=== PATIENT | male | born 1965 | race Hispanic/Latino ===

== ENCOUNTER 2016-11-22 20:04 | Inpatient (IN) | payer OTHER ==
[2016-11-22 20:05] VITALS: BMI 25.0
--- NOTE | 2016-11-22 20:23 | C.PDOC ---
History Of Present Illness 51 y/o male with past medical history of lung cancer presents to emergency department with c/o chest pain. Patient states he took his normal dose of morphine w/o relief, noting his typical pain medications are not helping him. Otherwise, denies fever, chills, nausea, vomiting, shortness of breath, or other associated symptoms. Time Seen by Provider: 11/22/16 20:23 Chief Complaint (Nursing): Chest Pain History Per: Patient History/Exam Limitations: no limitations Onset/Duration Of Symptoms: Days Current Symptoms Are (Timing): Still Present Severity: Moderate Pain Scale Rating Of: 5 Quality: "Pain" Associated Symptoms: denies: Nausea, Diaphoresis Recent travel outside of the [place]: No Past Medical History Reviewed: Historical Data, Nursing Documentation, Vital Signs Vital Signs: Last Vital Signs Temp 98.1 F 11/22/16 20:20 Pulse 94 H 11/22/16 20:34 Resp 16 11/22/16 20:20 BP 123/94 H 11/22/16 20:34 Pulse Ox 97 11/22/16 20:59 - Medical History PMH: Asthma, HTN, Malignancy (lung ca) - [employer] Procedures DRAINAGE OF RIGHT LOWER LOBE BRONCHUS, ENDO, DIAGN (09/13/16) EXCISION OF LEFT UPPER LOBE BRONCHUS, PERC APPROACH, DIAGN (07/05/16) EXCISION OF LEFT UPPER LUNG LOBE, ENDO, DIAGN (07/05/16) INSERTION OF ENDOTRACHEAL AIRWAY INTO TRACHEA, VIA OPENING (09/13/16) INSERTION OF INFUSION DEV INTO SUP VENA CAVA, PERC APPROACH (09/13/16) REMOVAL OF VAD FROM TRUNK SUBCU/FASCIA, OPEN APPROACH (09/13/16) RESPIRATORY VENTILATION, GREATER THAN 96 CONSECUTIVE HOURS (09/13/16) TRANSFUSE NONAUT PLATELETS IN PERIPH VEIN, PERC (09/13/16) TRANSFUSE NONAUT RED BLOOD CELLS IN PERIPH VEIN, PERC (09/13/16) ULTRASONOGRAPHY OF RIGHT AND LEFT HEART, TRANSESOPHAGEAL (09/13/16) Family History: States: Unknown Family Hx - Social History Hx Tobacco Use: Yes Hx Alcohol Use: No Hx Substance Use: No - Immunization History Hx Tetanus Toxoid Vaccination: No Hx Influenza Vaccination: No Hx Pneumococcal Vaccination: No Review Of Systems Constitutional: Negative for: Fever, Chills Cardiovascular: Positive for: Chest Pain Respiratory: Negative for: Cough, Shortness of Breath Skin: Negative for: Rash Physical Exam - Physical Exam Appears: Non-toxic, Other (moderate painful distress, 5/10) Skin: Warm, Dry Head: Atraumatic, Normacephalic Eye(s): right: Normal Inspection, left: Other (mild edema of left upper eyelid) Oral Mucosa: Moist Chest: Symmetrical Cardiovascular: Rhythm Regular Respiratory: Decreased Breath Sounds, No Accessory Muscle Use, Rhonchi ( scattered), No Wheezing Gastrointestinal/Abdominal: Soft, Distention (mildly distended), Other ( tympanic to percussion) Back: Normal Inspection Extremity: Normal ROM, Capillary Refill (< 2 sec. ), Other (PIC line left arm ) Neurological/Psych: Oriented x3 ED Course And Treatment - Laboratory Results Result Diagrams: 11/22/16 20:42 11/22/16 20:42 ECG: Interpreted By Me, Viewed By Me ECG Rhythm: Sinus Rhythm (98), Nonspecific Changes (occ, pac's) O2 Sat by Pulse Oximetry: 97 Pulse Ox Interpretation: Normal - Radiology CXR: Interpreted by Me, Viewed By Me CXR Interpretation: No: Infiltrates, Fracture, Pnemothorax, Other (cesar changes, unchanged from 10/03/16) Progress Note: EKG, VBG, labs, cxr ordered. Aspirin 325mg and dilaudid given. Disposition Discussed With Dr.: Aston Almonte Comment: accepted the pt on his service and took over the care at 10:22 PM Doctor Will See Patient In The: ED Counseled Patient/Family Regarding: Studies Performed, Diagnosis - Disposition Referrals: Jonas Watson MD [Primary Care Provider] - Disposition: HOSPITALIZED Disposition Time: 20:23 Condition: FAIR - Clinical Impression Clinical Impression: Intractable pain, Dyspnea, Chest pain, Lung cancer - Scribe Statement The provider has reviewed the documentation as recorded by the Ellisibe Gurpreet Yancey All medical record entries made by the Ellisibe were at my direction and personally dictated by me. I have reviewed the chart and agree that the record accurately reflects my personal performance of the history, physical exam, medical decision making, and the department course for this patient. I have also personally directed, reviewed, and agree with the discharge instructions and disposition. Decision To Admit - Pt Status Changed To: Hospital Disposition Of: Observation - . Bed Request Type: Telemetry Admitting Physician: Aston Almonte Patient Diagnosis: Dyspnea, Chest pain, Lung mass, Intractable pain
[2016-11-22] MEDS ORDERED: Aspirin 325 mg EC Tablets PO STA (20:24)
[2016-11-22] MEDS ORDERED: Aspirin 325 mg EC Tablets PO ONE (20:31)
[2016-11-22 20:46] LABS: BASO % 0.6 % (0.0-2.0); EOS % 0.6 % (0.0-4.0); HEMATOCRIT 26.9 % (35.0-51.0); LYMPH # 1.7 K/uL (1.0-4.3); LYMPH % 28.9 % (20.0-40.0); MEAN CELL VOLUME 92.7 fL (80.0-94.0); MEAN CORPUSCULAR HEMOGLOBIN 30.6 pg (27.0-31.0); MEAN CORPUSCULAR HGB CONC 32.9 g/dL (33.0-37.0); MEAN PLATELET VOLUME 7.8 fL (7.2-11.7); MONO # 0.7 K/uL (0.0-0.8); MONO % 12.1 % (0.0-10.0); NRBC % 0.1 % (0.0-2.0); RED CELL DISTRIBUTION WIDTH 20.2 % (11.5-14.5); WHITE BLOOD COUNT 5.9 K/uL (4.8-10.8)
[2016-11-22 20:53] LABS: CHLORIDE 95 mmol/L (98-107); POTASSIUM 3.2 mmol/L (3.6-5.2); SODIUM 136 mmol/L (132-148)
[2016-11-22 20:55] LABS: GFR AFRICAN-AMERICAN > 60; INR 1.2
[2016-11-22 20:56] LABS: ALKALINE PHOSPHATASE 79 U/L (38-126); ALT/SGPT 13 U/L (21-72); AST/SGOT 11 U/L (17-59); BILIRUBIN,TOTAL 0.4 mg/dL (0.2-1.3); BLOOD UREA NITROGEN 4 mg/dL (9-20); CARBON DIOXIDE 25 mmol/L (22-30); GLUCOSE,RANDOM 102 mg/dL (75-110); TOTAL PROTEIN 7.5 g/dL (6.3-8.3)
[2016-11-22 20:57] LABS: CALCIUM 9.4 mg/dl (8.6-10.4)
[2016-11-22 21:03] LABS: VENOUS BLOOD GAS BASE EXCESS 3.2 mmol/L (0.0-2.0); VENOUS BLOOD GAS PCO2 42 mmHg (40-60); VENOUS BLOOD PH 7.43 (7.32-7.43)
--- NOTE | 2016-11-22 23:08 | CP.PCM.HP ---
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 Pt reports he has chest pain "everyday" because of his lung cancer which occurs diffusely over his chest wall, and he normally rates as 5-7/10. Today, the pain was " worse than normal" and he had no appetite so he decided to come to the ED. He describes the chest pain as a "stabbing, sharp" left sided pain, rates it as a 10/10 on the pain scale, which does not radiate. Pt reports the pain is made worse with inspiration, eating, and palpation of the chest wall. He states his current pain regimen normally reduces his pain "to a manageable level," but it did not help today. He also admits to having multiple episodes of non-bloody diarrhea over the past three days. He has recent history of antibiotic use, but he does not know the name or the reason for its use. He further reports reduced facial sensation, and has history of stroke. He denies sequelae from CVA on previous admission. Patient is on home oxygen of 2 liters. He denies fever, chills, dysuria, diaphoresis, or cough. PMD: Dr. Watson Oncologist: Dr. 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 Used to smoke 3-4 PPD, now smokes 1/2 PPD. Denies alcohol or illicit drug use. 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 absent: Dyspnea, Dyspnea on Exertion - Respiratory Respiratory: absent: Cough, Dyspnea - Gastrointestinal Gastrointestinal: Diarrhea (3 days of persistent diarrhea, multiple episodes), Nausea. absent: Abdominal Pain, Vomiting - Genitourinary Genitourinary: absent: Dysuria - Musculoskeletal Musculoskeletal: absent: Back Pain, Numbness, Tingling - Neurological Neurological: absent: Numbness, Headaches, Tingling, Weakness - Psychiatric Psychiatric: absent: Anxiety, Depression Past Patient History - Infectious Disease Hx of Infectious Diseases: None - Past Medical History & Family History Past Medical History?: Yes - Past Social History Smoking Status: Heavy Smoker > 10 Cigarettes Daily - CARDIAC Hx Hypertension: Yes - PULMONARY Hx Asthma: Yes - NEUROLOGICAL Hx Neurological Disorder: Yes HX Cerebrovascular Accident: Yes Other/Comment: left eye blindness post cva - HEENT Hx HEENT Problems: Yes Hx Blind: Yes (left eye blind) - RENAL Hx Chronic Kidney Disease: No - ENDOCRINE/METABOLIC Hx Endocrine Disorders: No - HEMATOLOGICAL/ONCOLOGICAL Hx Blood Disorders: Yes Hx Cancer: Yes (LUNG CANCER) - INTEGUMENTARY Hx Dermatological Problems: No - MUSCULOSKELETAL/RHEUMATOLOGICAL Hx Musculoskeletal Disorders: Yes Hx Falls: Yes Other/Comment: HX: BILATERAL HERNIA(S). HX: LEFT ROTATOR CUFF TEAR - GASTROINTESTINAL Hx Gastrointestinal Disorders: No - GENITOURINARY/GYNECOLOGICAL Hx Genitourinary Disorders: No - PSYCHIATRIC Hx Substance Use: No - SURGICAL HISTORY Hx Surgeries: Yes Hx Herniorrhaphy: Yes (BILATERAL HERNIA REPAIR) Hx Musculoskeletal Surgery: Yes (LEFT ROTATOR CUFF) Other/Comment: yari catheter removed - ANESTHESIA Hx Anesthesia: Yes Hx Anesthesia Reactions: No Hx Malignant Hyperthermia: No Meds Allergies/Adverse Reactions: Allergies Allergy/AdvReac Type Severity Reaction Status Date / Time Penicillins Allergy SWELLING Verified 11/22/16 20:16 strawberry Allergy SWELLING Verified 11/22/16 20:16 all seafoods Allergy SWELLING Uncoded 11/22/16 20:16 iodinated IV dye Allergy SWELLING Uncoded 11/22/16 20:16 Physical Exam - Head Exam Head Exam: ATRAUMATIC, NORMAL INSPECTION, NORMOCEPHALIC Additional comments: no facial droop noted - Eye Exam Eye Exam: EOMI Pupil Exam: PERRL - ENT Exam ENT Exam: Mucous Membranes Moist - Neck Exam Neck exam: Positive for: Normal Inspection - Respiratory Exam Respiratory Exam: Chest Wall Tenderness, Clear to Auscultation Bilateral, NORMAL BREATHING PATTERN - Cardiovascular Exam Cardiovascular Exam: REGULAR RHYTHM, +S1, +S2 - GI/Abdominal Exam GI & Abdominal Exam: Normal Bowel Sounds, Soft. absent: Tenderness - Extremities Exam Extremities exam: Positive for: normal inspection, pedal pulses present. Negative for: tenderness - Back Exam Back exam: absent: CVA tenderness (L), CVA tenderness (R) - Neurological Exam Neurological exam: Alert, Oriented x3 Additional comments: Pt reports decreased facial sensation on left side on CN exam pt shows no evidence of facial droop MS: 5/5 in all extremities No dysmetria; light touch intact globally - Psychiatric Exam Psychiatric exam: Normal Affect, Normal Mood - Skin Skin Exam: Normal Color, Warm Results - Vital Signs Recent Vital Signs: Last Vital Signs Temp 98.1 F 11/22/16 20:20 Pulse 94 H 11/22/16 20:34 Resp 16 11/22/16 20:20 BP 123/94 H 11/22/16 20:34 Pulse Ox 97 11/22/16 22:22 - Labs Result Diagrams: 11/22/16 20:42 11/22/16 20:42 Assessment & Plan - Assessment and Plan (Free Text) Assessment: Chest pain Stabbing, anterior chest wall pain with palpation, worse with inspiration Observe on telemetry EKG: SR w/ premature atrial complexes, no acute ST/T wave changes ; f/u Q6H LAURIE: negative x 1; f/u Q6H BNP: 91.4 (WNL) ASA 325mg PO ONCE ASA 81 mg PO Daily Crestor 10mg PO HS O2 2L PRN f/u hemoglobin a1c, tsh, free t4, lipid panel, AM labs Hx of Lung CA 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 Minor, help appreciated - f/u reccs Intractable Pain HOLD home regimen: Morphine 60mg PO BID, Hydromorphone 4mg PO Q3H PRN Start Dilaudid 2mg IV Q4H PRN Consider pain consult in AM Facial numbness Hx of CVA, Lung Cancer No weakness in any extremity, no facial droop, pt admits altered sensation on CN exam CT Head: no acute findings (wet read per VRads, f/u official reading) Diarrhea Pt reports being on antibiotic, multiple episodes of diarrhea over last 3 days f/u C. Diff, stool culture, occult blood, leukocytes, ova and parasites Electrolyte Abnormalities hypokalemia: 3.2 on admission - repleted with Kdur 40mg x 2 Monitor Prophylaxis SCDs Protonix 40mg IV Daily Lovenox 40mg PO Daily <Aston Almonte - Last Filed: 11/23/16 06:12> Results - Vital Signs Recent Vital Signs: Last Vital Signs Temp 98.1 F 11/22/16 20:20 Pulse 84 11/23/16 03:10 Resp 18 11/23/16 03:00 BP 106/74 11/23/16 03:00 Pulse Ox 95 11/23/16 03:00 - Labs Result Diagrams: 11/23/16 05:55 11/22/16 20:42 Labs: Laboratory Results - last 24 hr 11/23/16 11/23/16 05:04 05:55 WBC 4.4 L RBC 2.66 L Hgb 8.2 L Hct 24.8 L MCV 93.1 MCH 30.6 MCHC 32.9 L RDW 20.4 H Plt Count 148 MPV 8.0 Neut % (Auto) 55.9 Lymph % (Auto) 28.3 Wheeler % (Auto) 13.3 H Eos % (Auto) 2.1 Baso % (Auto) 0.4 Neut # 2.5 Lymph # 1.3 Wheeler # 0.6 Eos # 0.1 Baso # 0.0 Urine Color Yellow Urine Clarity Hazy Urine pH 6.0 Ur Specific Mccool 1.024 Urine Protein 2+ H Urine Glucose (UA) Normal Urine Ketones Negative Urine Blood Negative Urine Nitrate Negative Urine Bilirubin Negative Urine Urobilinogen Normal Ur Leukocyte Esterase Neg Urine WBC (Auto) 3 Urine RBC (Auto) 3 Ur Squamous Epith Cells < 1 Hyaline Casts 0-2 Assessment & Plan - Date & Time Date: 11/23/16 (I have seen and examined the patient. I agree with the findings and plan of care as documented by Dr. Villafana. Patient with history of lung CA. Now with intractable pain from lung CA and also new complaint of chest pain. ROMIx3 with EKG. Symptomatic treatment. Consider pain management. Consult to Dr Minor. Monitor for acute changes.) Time: 06:11 Attending/Attestation - Attestation I have personally seen and examined this patient.: Yes I have fully participated in the care of the patient.: Yes I have reviewed all pertinent clinical information: Yes
[2016-11-23] MEDS: Potassium Chloride 20 mEq ER Tab PO SCH ×2 (01:41→04:57)
[2016-11-23 04:12] LABS: RBC URINE 3 /hpf (0-3); URINE BILIRUBIN NEGATIVE (NEGATIVE); URINE BLOOD NEGATIVE (NEGATIVE); URINE COLOR Yellow (YELLOW); URINE GLUCOSE (UA) NORMAL (Normal); URINE HYALINE CAST 0-2 /lpf (0-2); URINE KETONE NEGATIVE (NEGATIVE); URINE LEUKOCYTE ESTERASE NEG Leu/uL (Negative); URINE PROTEIN 2+ mg/dL (NEGATIVE); URINE UROBILINOGEN NORMAL mg/dL (0.2-1.0); WBC URINE 3 /hpf (0-5)
[2016-11-23 06:03] LABS: BASO % 0.4 % (0.0-2.0); EOS # 0.1 K/uL (0.0-0.7); EOS % 2.1 % (0.0-4.0); HEMATOCRIT 24.8 % (35.0-51.0); LYMPH # 1.3 K/uL (1.0-4.3); LYMPH % 28.3 % (20.0-40.0); MEAN CELL VOLUME 93.1 fL (80.0-94.0); MEAN CORPUSCULAR HEMOGLOBIN 30.6 pg (27.0-31.0); MEAN CORPUSCULAR HGB CONC 32.9 g/dL (33.0-37.0); MONO # 0.6 K/uL (0.0-0.8); MONO % 13.3 % (0.0-10.0); RED CELL DISTRIBUTION WIDTH 20.4 % (11.5-14.5); WHITE BLOOD COUNT 4.4 K/uL (4.8-10.8)
[2016-11-23 06:21] LABS: CHLORIDE 99 mmol/L (98-107); POTASSIUM 3.2 mmol/L (3.6-5.2); SODIUM 138 mmol/L (132-148)
[2016-11-23 06:23] LABS: ALB/GLOB RATIO 0.9 (1.0-2.1); ALKALINE PHOSPHATASE 60 U/L (38-126); ALT/SGPT 16 U/L (21-72); AST/SGOT 13 U/L (17-59); BILIRUBIN,TOTAL 0.3 mg/dL (0.2-1.3); BLOOD UREA NITROGEN 5 mg/dL (9-20); CARBON DIOXIDE 28 mmol/L (22-30); GFR AFRICAN-AMERICAN > 60; TOTAL PROTEIN 6.7 g/dL (6.3-8.3)
[2016-11-23 06:24] LABS: CALCIUM 8.8 mg/dl (8.6-10.4); GLUCOSE,RANDOM 116 mg/dL (75-110); MAGNESIUM 1.8 mg/dL (1.6-2.3); PHOSPHOROUS 5.5 mg/dL (2.5-4.5)
[2016-11-23 06:38] LABS: CHOLESTEROL 175 mg/dL (0-199)
--- NOTE | 2016-11-23 08:00 | CP.PCM.PN ---
<Jimmy Sarkar - Last Filed: 11/23/16 21:18> Subjective - Date & Time of Evaluation Date of Evaluation: 11/23/16 Time of Evaluation: 07:40 - Subjective Subjective: PGY1 Medicine Note Patient seen and examined. No overnight events per nursing. Patient reports previously being treated for his SCC of the lung, however he did not fully complete chemotherapy due to development of chest pain. Tolerating diet. + diarrhea. Reports pain to palpation of his left chest wall. He also admits to having multiple episodes of non-bloody diarrhea over the past three days due to antibiotic therapy for infective endocarditis. Denies fever, chills, dysuria, diaphoresis, or cough. Objective - Vital Signs/Intake and Output Vital Signs (last 24 hours): Temp Pulse Resp BP Pulse Ox 98.1 F 84 22 106/74 95 11/22/16 20:20 11/23/16 03:10 11/23/16 03:10 11/23/16 03:00 11/23/16 03:10 Intake and Output: 11/23/16 11/23/16 06:59 18:59 Intake Total 480 Output Total 0 Balance 480 - Medications Medications: Current Medications Albuterol (Ventolin Hfa 90 Mcg/Actuation (8 G)) 2 puff IH RQ6 [facility] Aspirin (Ecotrin) 81 mg PO DAILY [facility] Enoxaparin Sodium (Lovenox) 40 mg SC DAILY [facility] Hydromorphone HCl (Dilaudid) 2 mg IVP Q4H PRN PRN Reason: Pain, severe (8-10) Last Admin: 11/23/16 04:58 Dose: 2 mg Pantoprazole Sodium (Protonix Inj) 40 mg IVP DAILY [facility] Quetiapine Fumarate (Seroquel) 25 mg PO Q8H [facility] Last Admin: 11/23/16 01:40 Dose: 25 mg Rosuvastatin Calcium (Crestor) 10 mg PO HS [facility] - Labs Labs: 11/23/16 05:55 11/23/16 05:55 PT 14.0 SECONDS (9.7-12.2) H 11/22/16 20:42 INR 1.2 11/22/16 20:42 APTT 41 SECONDS (21-34) H 11/22/16 20:42 - Additional Findings Additional findings: - Head Exam Head Exam: ATRAUMATIC, NORMAL INSPECTION, NORMOCEPHALIC Additional comments: no facial droop noted - Eye Exam Eye Exam: EOMI Pupil Exam: PERRL - ENT Exam ENT Exam: Mucous Membranes Moist - Neck Exam Neck exam: Positive for: Normal Inspection - Respiratory Exam Respiratory Exam: Chest Wall Tenderness, Clear to Auscultation Bilateral, NORMAL BREATHING PATTERN - Cardiovascular Exam Cardiovascular Exam: REGULAR RHYTHM, +S1, +S2 Tenderness to palpation of Left chest wall. - GI/Abdominal Exam GI & Abdominal Exam: Normal Bowel Sounds, Soft. absent: Tenderness - Extremities Exam Extremities exam: Positive for: normal inspection, pedal pulses present. Negative for: tenderness - Back Exam Back exam: absent: CVA tenderness (L), CVA tenderness (R) - Neurological Exam Neurological exam: Alert, Oriented x3 Additional comments: Pt reports decreased facial sensation on left side on CN exam pt shows no evidence of facial droop MS: 5/5 in all extremities No dysmetria; light touch intact globally - Psychiatric Exam Psychiatric exam: Normal Affect, Normal Mood - Skin Skin Exam: Normal Color, Warm Assessment and Plan - Assessment and Plan (Free Text) Assessment: Chest pain 11/23: pain to palpation of Left chest wall. Consult Cardio, Dr. Buenrostro -> Audra stress test 11/24 in AM. Stabbing, anterior chest wall pain with palpation, worse with inspiration Observe on telemetry EKG: SR w/ premature atrial complexes, no acute ST/T wave changes LAURIE: negative x 3 BNP: 91.4 (WNL) ASA 325mg PO ONCE ASA 81 mg PO Daily Crestor 10mg PO HS O2 2L PRN f/u hemoglobin a1c tsh, free t4 - WNL Triglyc 150 H ; Cholest 175; LDL 136; HDL 21 Hx of Infective Endocarditis 11/23: Consult ID, Dr. Keenan, f/u recs. 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 Minor, jade hall - f/u reccs Intractable Pain HOLD home regimen: Morphine 60mg PO BID, Hydromorphone 4mg PO Q3H PRN Start Dilaudid 2mg IV Q4H PRN Consider pain consult in AM Anemia Hgb 8.2 Continue to monitor. type and screen. Facial numbness Hx of CVA, Lung Cancer No weakness in any extremity, no facial droop, pt admits altered sensation on CN exam CT Head: no acute findings (wet read per VRads, f/u official reading) Diarrhea Pt reports being on antibiotic, multiple episodes of diarrhea over last 3 days f/u C. Diff, stool culture, occult blood, leukocytes, ova and parasites Electrolyte Abnormalities hypokalemia: 3.2 on admission - repleted with Kdur 40mg x 2 Monitor Prophylaxis SCDs Protonix 40mg IV Daily Lovenox 40mg PO Daily <Danny Caraballo - Last Filed: 11/24/16 09:24> Objective - Vital Signs/Intake and Output Vital Signs (last 24 hours): Temp Pulse Resp BP Pulse Ox 98 F 85 19 133/73 98 11/24/16 04:00 11/24/16 04:00 11/24/16 00:00 11/23/16 23:53 11/24/16 00:00 Intake and Output: 11/24/16 11/24/16 06:59 18:59 Intake Total 240 Output Total 1500 Balance -1260 - Medications Medications: Current Medications Albuterol (Ventolin Hfa 90 Mcg/Actuation (8 G)) 2 puff IH RQ6 [facility] Last Admin: 11/24/16 07:54 Dose: Not Given Aspirin (Ecotrin) 81 mg PO DAILY [facility] Last Admin: 11/23/16 10:04 Dose: 81 mg Enoxaparin Sodium (Lovenox) 40 mg SC DAILY [facility] Last Admin: 11/23/16 10:04 Dose: 40 mg Hydromorphone HCl (Dilaudid) 2 mg IVP Q4H PRN PRN Reason: Pain, severe (8-10) Last Admin: 11/24/16 04:41 Dose: 2 mg Telavancin 750 mg/ Sodium (Chloride) 100 mls @ 100 mls/hr IVPB Q24H [facility] Pantoprazole Sodium (Protonix Inj) 40 mg IVP DAILY [facility] Last Admin: 11/23/16 10:03 Dose: 40 mg Quetiapine Fumarate (Seroquel) 25 mg PO Q8H [facility] Last Admin: 11/24/16 00:45 Dose: Not Given Rosuvastatin Calcium (Crestor) 10 mg PO HS [facility] Last Admin: 11/23/16 21:52 Dose: 10 mg - Labs Labs: 11/24/16 06:37 11/24/16 06:29 PT 14.0 SECONDS (9.7-12.2) H 11/22/16 20:42 INR 1.2 11/22/16 20:42 APTT 41 SECONDS (21-34) H 11/22/16 20:42 Attending/Attestation - Attestation I have personally seen and examined this patient.: Yes I have fully participated in the care of the patient.: Yes I have reviewed all pertinent clinical information, including history, physical exam and plan: Yes Notes (Text): 11/24/16 09:23 Patient was seen and examined at bedside with the resident Patient to states the chest pain is improved to slightly We will request cardiology and infectious disease evaluation for the patient and patient is started on IV antibiotics for infective endocarditis treatment Discussed the plan of care with the resident and agree with the assessment and plan by the resident
[2016-11-23] MEDS: Albuterol HFA 90 mcg/actuation (8 g) IH SCH ×3 (08:26→22:28)
--- NOTE | 2016-11-23 08:27 | CT ---
PROCEDURE: CT HEAD WITHOUT CONTRAST. HISTORY: facial numbness on left; hx CA, prior CVA COMPARISON: 09/13/2016 TECHNIQUE: Axial computed tomography images were obtained through the head/brain without intravenous contrast. Radiation dose: . FINDINGS: HEMORRHAGE: No intracranial hemorrhage. BRAIN: No mass effect or edema. No atrophy or chronic microvascular ischemic changes. VENTRICLES: Unremarkable. No hydrocephalus. CALVARIUM: Unremarkable. PARANASAL SINUSES: Unremarkable as visualized. No significant inflammatory changes. MASTOID AIR CELLS: Unremarkable as visualized. No inflammatory changes. OTHER FINDINGS: Mild hyperdensity in the left posterior chamber corresponding to high signal in the posterior chamber seen on axial T1 weighted images of MRI dated 10/12/2016. Possible blood products. Please correlate with ophthalmologic examination. IMPRESSION: No intracranial mass, hemorrhage or evidence of acute infarct. Hyperdensity in left globe posterior chamber. Please correlate with ophthalmologic examination. Preliminary interpretation of this examination was reported by [facility] at 12:28 a.m. on 11/23/2016. There is concurrence of this report with the preliminary interpretation.
--- NOTE | 2016-11-23 09:21 | RAD ---
PROCEDURE: CHEST RADIOGRAPH, 1 VIEW HISTORY: chest pain COMPARISON: 10/03/2016 FINDINGS: LUNGS: Biapical pleural thickening with upper lobe granulomatous changes. Bilateral hilar prominence. Patchy consolidative changes at the right lung base. Bibasilar atelectasis. Lines and tubes stable position. PLEURA: Small right pleural effusion. CARDIOVASCULAR: Normal. OSSEOUS STRUCTURES: No significant abnormalities. VISUALIZED UPPER ABDOMEN: Normal. OTHER FINDINGS: None. IMPRESSION: Biapical pleural thickening with upper lobe granulomatous changes. Bilateral hilar prominence. Patchy consolidative changes at the right lung base. Bibasilar atelectasis. Lines and tubes stable position. Small right pleural effusion.
[2016-11-23] MEDS: Enoxaparin 40 mg Syringe SC SCH (10:04)
--- NOTE | 2016-11-23 10:45 | CARD ---
APPROVED REPORT EKG Measurement Heart [id number] <Conclusion> Sinus rhythm with premature atrial complexes Otherwise normal ECG
[2016-11-23] MEDS ORDERED: Telavancin Hydrochloride 750 MG in Sodium Chloride 0.9% 100 ML IVPB SCH (12:00)
--- NOTE | 2016-11-23 12:33 | CP.PCM.CON ---
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 Pt reported that he was originally having diffuse chest pains over his chest wall, occurring everyday, and believed it to be due to his lung cancer. However although pt's current pain medications usually kept the pain at a tolerable level, pt's pain recently worsened so pt presented to the ER. Pt described the chest pain as a "stabbing, sharp" left sided pain, non radiating, and worsened with inspiration, eating, and palpation. He also admitted to having multiple episodes of non-bloody diarrhea over the past three days, and admitted to recent antibiotic use. Pulmonary team was counseled for pt's history of Pancoast Tumor and COPD. Patient seen and examined in the ICU. Pt sitting in chair next to bed, appears comfortable. Pt not using nasal cannula at this time. Pt states that he is feeling "okay" because the Dilaudid takes "the edge off" his chest pain but does not make his pain fully diminished. Pt continues that his chest pain is sharp and stabbing in nature, diffuse, but is mostly at the left side of his chest. Pt also admits to some coughing with mucus production, but states that this is chronic. Pt denies SOB, subjective fever, and congestion. Pt also states that he takes his inhaler at home regularly as well as 2 liters of O2 and they keep him comfortable and stable at home. Social hx: smokes cigarettes 1.5 ppd x 37 yrs. Used to smoke 3-4 PPD, now smokes 1/2 PPD. Denies alcohol or illicit drug use. Review of Systems - Constitutional Constitutional: absent: Chills, Fever, Night Sweats - Cardiovascular Cardiovascular: Chest Pain. absent: Dyspnea, Dyspnea on Exertion - Respiratory Respiratory: absent: Cough, Dyspnea, Hemoptysis, Excessive Mucous Production Past Patient History - Infectious Disease Hx of Infectious Diseases: None - Past Medical History & Family History Past Medical History?: Yes - Past Social History Smoking Status: Heavy Smoker > 10 Cigarettes Daily - CARDIAC Hx Hypertension: Yes - PULMONARY Hx Asthma: Yes - NEUROLOGICAL Hx Neurological Disorder: Yes HX Cerebrovascular Accident: Yes (left eye blindness) Other/Comment: left eye blindness post cva - HEENT Hx HEENT Problems: Yes Hx Blind: Yes (left eye blind) - RENAL Hx Chronic Kidney Disease: No - ENDOCRINE/METABOLIC Hx Endocrine Disorders: No - HEMATOLOGICAL/ONCOLOGICAL Hx Blood Disorders: Yes Hx Cancer: Yes (LUNG CANCER) - INTEGUMENTARY Hx Dermatological Problems: No - MUSCULOSKELETAL/RHEUMATOLOGICAL Hx Musculoskeletal Disorders: Yes Hx Falls: Yes Other/Comment: HX: BILATERAL HERNIA(S). HX: LEFT ROTATOR CUFF TEAR - GASTROINTESTINAL Hx Gastrointestinal Disorders: No - GENITOURINARY/GYNECOLOGICAL Hx Genitourinary Disorders: No - PSYCHIATRIC Hx Psychophysiologic Disorder: No Hx Substance Use: No - SURGICAL HISTORY Hx Surgeries: Yes Hx Herniorrhaphy: Yes (BILATERAL HERNIA REPAIR) Hx Musculoskeletal Surgery: Yes (LEFT ROTATOR CUFF) Other/Comment: yari catheter removed - ANESTHESIA Hx Anesthesia: Yes Hx Anesthesia Reactions: No Hx Malignant Hyperthermia: No Meds Allergies/Adverse Reactions: Allergies Allergy/AdvReac Type Severity Reaction Status Date / Time Penicillins Allergy SWELLING Verified 11/22/16 20:16 strawberry Allergy SWELLING Verified 11/22/16 20:16 all seafoods Allergy SWELLING Uncoded 11/22/16 20:16 iodinated IV dye Allergy SWELLING Uncoded 11/22/16 20:16 - Medications Medications: Current Medications Albuterol (Ventolin Hfa 90 Mcg/Actuation (8 G)) 2 puff IH RQ6 [facility] Last Admin: 11/23/16 08:26 Dose: Not Given Aspirin (Ecotrin) 81 mg PO DAILY [facility] Last Admin: 11/23/16 10:04 Dose: 81 mg Enoxaparin Sodium (Lovenox) 40 mg SC DAILY [facility] Last Admin: 11/23/16 10:04 Dose: 40 mg Hydromorphone HCl (Dilaudid) 2 mg IVP Q4H PRN PRN Reason: Pain, severe (8-10) Last Admin: 11/23/16 10:03 Dose: 2 mg Telavancin 750 mg/ Sodium (Chloride) 100 mls @ 100 mls/hr IVPB Q24H [facility] Telavancin 750 mg/ Sodium (Chloride) 100 mls @ 100 mls/hr IVPB ONCE ONE Stop: 11/23/16 13:59 Pantoprazole Sodium (Protonix Inj) 40 mg IVP DAILY [facility] Last Admin: 11/23/16 10:03 Dose: 40 mg Quetiapine Fumarate (Seroquel) 25 mg PO Q8H [facility] Last Admin: 11/23/16 10:04 Dose: 25 mg Rosuvastatin Calcium (Crestor) 10 mg PO HS [facility] Physical Exam - Constitutional Appears: Non-toxic, No Acute Distress - Head Exam Head Exam: ATRAUMATIC, NORMOCEPHALIC - Eye Exam Additional comments: Left eye droop - ENT Exam ENT Exam: Mucous Membranes Moist - Respiratory Exam Respiratory Exam: Chest Wall Tenderness, Clear to Auscultation Bilateral, NORMAL BREATHING PATTERN - Cardiovascular Exam Cardiovascular Exam: REGULAR RHYTHM, +S1, +S2 - Neurological Exam Neurological exam: Alert, Oriented x3 - Skin Skin Exam: Dry, Intact, Normal Color, Warm Results - Vital Signs Recent Vital Signs: Last Vital Signs Temp 98.1 F 11/22/16 20:20 Pulse 82 11/23/16 08:58 Resp 22 11/23/16 03:10 BP 106/74 11/23/16 03:00 Pulse Ox 95 11/23/16 03:10 - Labs Result Diagrams: 11/23/16 05:55 11/23/16 05:55 Assessment & Plan (1) COPD (chronic obstructive pulmonary disease) Assessment and Plan: Chest X-ray on 11/22/16 showed small right pleural effusion. Biapical pleural thickening with upper lobe granulomatous changes, bilateral hilar prominence, patchy consolidative changes at right lung base. Bibasilar atelectasis. See report for full details. Pt is currently stable and not displaying symptoms of COPD exacerbation. Continue Ventolin, O2 treatments. Work up in progress. Consider Chest CT. Continue to monitor for worsening CP, SOB, and fever. Status: Acute (2) Lung mass Assessment and Plan: Pt is currently being treated with chemotherapy for Pancoast Tumor. Continue as per Oncology recommendations Status: Acute
[2016-11-23] MEDS ORDERED: Telavancin Hydrochloride 750 MG in Sodium Chloride 0.9% 100 ML IVPB ONE (13:00)
--- NOTE | 2016-11-23 17:15 | CP.PCM.CON ---
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 He describes the chest pain as a "stabbing, sharp" left sided pain, rates it as a 10/10 on the pain scale, which does not radiate. PMD: Dr. Watson Oncologist: Dr. 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 Used to smoke 3-4 PPD, now smokes 1/2 PPD. Denies alcohol or illicit drug use. 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 Current pain regimen: Morphine 60mg PO BID, Hydromorphone 4mg Q3H PO PRN for breath-through pain Review of Systems - Constitutional Constitutional: As Per HPI - EENT Eyes: As Per HPI, Loss of Vision Ears: absent: As Per HPI, Decreased Hearing, Ear Discharge, Ear Pain, Tinnitus, Abnormal Hearing, Disequilibrium, Dizziness, Other Nose/Mouth/Throat: absent: As Per HPI, Epistaxis, Nasal Congestion, Nasal Discharge, Nasal Obstruction, Nasal Trauma, Nose Pain, Post Nasal Drip, Sinus Pain, Sinus Pressure, Bleeding Gums, Change in Voice, Dental Pain, Dry Mouth, Dysphagia, Halitosis, Hoarsness, Lip Swelling, Mouth Lesions, Mouth Pain, Odynophagia, Sore Throat, Throat Swelling, Tongue Swelling, Facial Pain, Neck Pain, Neck Mass, Other - Cardiovascular Cardiovascular: As Per HPI - Respiratory Respiratory: As Per HPI, Cough. absent: Hemoptysis - Gastrointestinal Gastrointestinal: absent: As Per HPI, Abdominal Pain, Belching, Bloating, Change in Bowel Habits, Change in Stool Character, Coffee Ground Emesis, Constipation, Cramping, Diarrhea, Dyspepsia, Dysphagia, Early Satiety, Excessive Flatus, Fecal Incontinence, Heartburn, Hematemesis, Hematochezia, Loose Stools, Melena, Nausea, Odynophagia, Temesmus, Vomiting, Other - Genitourinary Genitourinary: absent: As Per HPI, Change in Urinary Stream, Difficulty Urinating, Dysuria, Flank Pain, Hematuria, Pyuria, Nocturia, Urinary Incontinence, Urinary Frequency, Urinary Hesitance, Urinary Urgency, Voiding Freq/Small Amts, Freq UTI, Hx Renal/Bladder Calculi, Hx /Renal Surgery, Bladder Distension, Other - Musculoskeletal Musculoskeletal: absent: As Per HPI, Abnormal Gait, Arthralgias, Atrophy, Back Pain, Deformity, Joint Swelling, Limited Range of Motion, Loss of Height, Muscle Cramps, Muscle Weakness, Myalgias, Neck Pain, Numbness, Radiating Pain into Limb, Stiffness, Tingling, Other - Integumentary Integumentary: absent: As Per HPI, Acne, Alopecia, Bleeding Lesions, Change in Hair, Change in Nails, Change in Pigmentation, Changing Lesions, Dry Skin, Erythema, Furuncle, Hirsutism, Lesions, New Lesions, Non-Healing Lesions, Photosensitivity, Pruritus, Rash, Skin Pain, Skin Ulcer, Sores, Striae, Swelling , Unusual Bruising, Wounds, Jaundice, Other - Neurological Neurological: As Per HPI - Psychiatric Psychiatric: absent: As Per HPI, Abnormal Sleep Pattern, Anhedonia, Anxiety, Auditory Hallucinations, Behavioral Changes, Change in Appetite, Change in Libido, Confusion, Depression, Difficulty Concentrating, Hallucinations, Homicidal Ideation, Hopelessness, Irritability, Memory Loss, Mood Swings, Panic Attacks, Paranoia, Suicidal Ideation, Visual Hallucinations, Tactile Hallucinations, Other - Endocrine Endocrine: absent: As Per HPI, Change in Body Appearance, Change in Libido, Cold Intolorance, Deepening of Voice, Excessive Sweating, Fatigue, Flushing, Heat Intolorance, Increase in Ring/Shoe/Hat Size, Palpitations, Polydipsia, Polyphagia, Polyuria, Other - Hematologic/Lymphatic Hematologic: absent: As Per HPI, Easy Bleeding, Easy Bruising, Lymphadenopathy, Other Past Patient History - Infectious Disease Hx of Infectious Diseases: None - Past Medical History & Family History Past Medical History?: Yes - Past Social History Smoking Status: Heavy Smoker > 10 Cigarettes Daily - CARDIAC Hx Hypertension: Yes - PULMONARY Hx Asthma: Yes - NEUROLOGICAL Hx Neurological Disorder: Yes HX Cerebrovascular Accident: Yes (left eye blindness) Other/Comment: left eye blindness post cva - HEENT Hx HEENT Problems: Yes Hx Blind: Yes (left eye blind) - RENAL Hx Chronic Kidney Disease: No - ENDOCRINE/METABOLIC Hx Endocrine Disorders: No - HEMATOLOGICAL/ONCOLOGICAL Hx Blood Disorders: Yes Hx Cancer: Yes (LUNG CANCER) - INTEGUMENTARY Hx Dermatological Problems: No - MUSCULOSKELETAL/RHEUMATOLOGICAL Hx Musculoskeletal Disorders: Yes Hx Falls: Yes Other/Comment: HX: BILATERAL HERNIA(S). HX: LEFT ROTATOR CUFF TEAR - GASTROINTESTINAL Hx Gastrointestinal Disorders: No - GENITOURINARY/GYNECOLOGICAL Hx Genitourinary Disorders: No - PSYCHIATRIC Hx Psychophysiologic Disorder: No Hx Substance Use: No - SURGICAL HISTORY Hx Surgeries: Yes Hx Herniorrhaphy: Yes (BILATERAL HERNIA REPAIR) Hx Musculoskeletal Surgery: Yes (LEFT ROTATOR CUFF) Other/Comment: yari catheter removed - ANESTHESIA Hx Anesthesia: Yes Hx Anesthesia Reactions: No Hx Malignant Hyperthermia: No Meds Allergies/Adverse Reactions: Allergies Allergy/AdvReac Type Severity Reaction Status Date / Time Penicillins Allergy SWELLING Verified 11/22/16 20:16 strawberry Allergy SWELLING Verified 11/22/16 20:16 all seafoods Allergy SWELLING Uncoded 11/22/16 20:16 iodinated IV dye Allergy SWELLING Uncoded 11/22/16 20:16 - Medications Medications: Current Medications Albuterol (Ventolin Hfa 90 Mcg/Actuation (8 G)) 2 puff IH RQ6 [facility] Last Admin: 11/23/16 13:59 Dose: Not Given Aspirin (Ecotrin) 81 mg PO DAILY [facility] Last Admin: 11/23/16 10:04 Dose: 81 mg Enoxaparin Sodium (Lovenox) 40 mg SC DAILY [facility] Last Admin: 11/23/16 10:04 Dose: 40 mg Hydromorphone HCl (Dilaudid) 2 mg IVP Q4H PRN PRN Reason: Pain, severe (8-10) Last Admin: 11/23/16 14:35 Dose: 2 mg Telavancin 750 mg/ Sodium (Chloride) 100 mls @ 100 mls/hr IVPB Q24H [facility] Pantoprazole Sodium (Protonix Inj) 40 mg IVP DAILY [facility] Last Admin: 11/23/16 10:03 Dose: 40 mg Quetiapine Fumarate (Seroquel) 25 mg PO Q8H [facility] Last Admin: 11/23/16 10:04 Dose: 25 mg Rosuvastatin Calcium (Crestor) 10 mg PO HS [facility] Physical Exam - Constitutional Appears: Non-toxic, Chronically Ill - Head Exam Head Exam: ATRAUMATIC, NORMOCEPHALIC - Eye Exam Eye Exam: absent: Scleral icterus Additional comments: left eye blind - ENT Exam ENT Exam: Mucous Membranes Dry, Normal External Ear Exam, Normal Oropharynx - Neck Exam Neck exam: Negative for: Lymphadenopathy, Thyromegaly - Respiratory Exam Respiratory Exam: Decreased Breath Sounds, Clear to Auscultation Bilateral - Cardiovascular Exam Cardiovascular Exam: REGULAR RHYTHM, +S1, +S2, Systolic Murmur - GI/Abdominal Exam GI & Abdominal Exam: Diminished Bowel Sounds, Distended, Soft. absent: Tenderness - Rectal Exam Rectal Exam: Deferred - Exam Exam: NORMAL INSPECTION - Extremities Exam Extremities exam: Positive for: pedal pulses present. Negative for: calf tenderness, pedal edema, tenderness - Back Exam Back exam: absent: CVA tenderness (L), CVA tenderness (R) - Neurological Exam Neurological exam: Alert, CN II-XII Intact, Oriented x3, Reflexes Normal - Psychiatric Exam Psychiatric exam: Normal Affect, Normal Mood - Skin Skin Exam: Dry Results - Vital Signs Recent Vital Signs: Last Vital Signs Temp 98.1 F 11/22/16 20:20 Pulse 82 11/23/16 08:58 Resp 22 11/23/16 03:10 BP 106/74 11/23/16 03:00 Pulse Ox 95 11/23/16 03:10 - Labs Result Diagrams: 11/23/16 05:55 11/23/16 05:55 Assessment & Plan (1) COPD (chronic obstructive pulmonary disease) Status: Acute (2) Chest pain Status: Acute (3) Dyspnea Status: Acute (4) Lung cancer Status: Chronic (5) Endocarditis due to methicillin susceptible Staphylococcus aureus (MSSA) Status: Acute - Assessment and Plan (Free Text) Assessment: cont iv rx for endocarditis consider cardio eval / echo
[2016-11-24] MEDS: Albuterol HFA 90 mcg/actuation (8 g) IH SCH ×4 (01:08→19:57)
[2016-11-24 06:44] LABS: CHLORIDE 95 mmol/L (98-107)
[2016-11-24 06:45] LABS: BASO % 0.7 % (0.0-2.0); EOS # 0.1 K/uL (0.0-0.7); EOS % 1.9 % (0.0-4.0); HEMATOCRIT 23.1 % (35.0-51.0); LYMPH # 1.2 K/uL (1.0-4.3); LYMPH % 24.5 % (20.0-40.0); MEAN CELL VOLUME 93.2 fL (80.0-94.0); MEAN CORPUSCULAR HEMOGLOBIN 30.9 pg (27.0-31.0); MEAN CORPUSCULAR HGB CONC 33.2 g/dL (33.0-37.0); MEAN PLATELET VOLUME 7.9 fL (7.2-11.7); MONO # 0.7 K/uL (0.0-0.8); MONO % 13.8 % (0.0-10.0); NRBC % 0.1 % (0.0-2.0); RED CELL DISTRIBUTION WIDTH 20.3 % (11.5-14.5); WHITE BLOOD COUNT 4.9 K/uL (4.8-10.8)
[2016-11-24 06:45] LABS: SODIUM 137 mmol/L (132-148)
[2016-11-24 06:47] LABS: GFR AFRICAN-AMERICAN > 60
[2016-11-24 06:48] LABS: ALKALINE PHOSPHATASE 66 U/L (38-126); ALT/SGPT 11 U/L (21-72); AST/SGOT 10 U/L (17-59); BILIRUBIN,TOTAL 0.1 mg/dL (0.2-1.3); BLOOD UREA NITROGEN 8 mg/dL (9-20); CARBON DIOXIDE 29 mmol/L (22-30); GLUCOSE,RANDOM 108 mg/dL (75-110); PHOSPHOROUS 5.8 mg/dL (2.5-4.5); TOTAL PROTEIN 6.3 g/dL (6.3-8.3)
[2016-11-24 06:49] LABS: MAGNESIUM 1.8 mg/dL (1.6-2.3)
--- NOTE | 2016-11-24 07:55 | CP.PCM.PN ---
<Jimmy Sarkar - Last Filed: 11/24/16 22:01> Subjective - Date & Time of Evaluation Date of Evaluation: 11/24/16 Time of Evaluation: 07:00 - Subjective Subjective: PGY1 Medicine Note Patient seen and examined. Overnight, patient c/o b/l chest and upper back pain , dilaudid administration helped. Patient went for stress test with Dr. Buenrostro today. Tolerated exam. Pt reports he is tolerating diet. Reports pain to palpation of his left chest wall persists. Denies fever, chills, cough, diaphoresis, SOB, abdominal pain, n/v, urinary symptoms, or any additional acute complaints. Objective - Vital Signs/Intake and Output Vital Signs (last 24 hours): Temp Pulse Resp BP Pulse Ox 98 F 85 19 133/73 98 11/24/16 04:00 11/24/16 04:00 11/24/16 00:00 11/23/16 23:53 11/24/16 00:00 Intake and Output: 11/24/16 11/24/16 06:59 18:59 Intake Total 240 Output Total 1500 Balance -1260 - Medications Medications: Current Medications Albuterol (Ventolin Hfa 90 Mcg/Actuation (8 G)) 2 puff IH RQ6 [facility] Last Admin: 11/24/16 01:08 Dose: Not Given Aspirin (Ecotrin) 81 mg PO DAILY [facility] Last Admin: 11/23/16 10:04 Dose: 81 mg Enoxaparin Sodium (Lovenox) 40 mg SC DAILY [facility] Last Admin: 11/23/16 10:04 Dose: 40 mg Hydromorphone HCl (Dilaudid) 2 mg IVP Q4H PRN PRN Reason: Pain, severe (8-10) Last Admin: 11/24/16 04:41 Dose: 2 mg Telavancin 750 mg/ Sodium (Chloride) 100 mls @ 100 mls/hr IVPB Q24H [facility] Pantoprazole Sodium (Protonix Inj) 40 mg IVP DAILY [facility] Last Admin: 11/23/16 10:03 Dose: 40 mg Quetiapine Fumarate (Seroquel) 25 mg PO Q8H [facility] Last Admin: 11/24/16 00:45 Dose: Not Given Rosuvastatin Calcium (Crestor) 10 mg PO HS [facility] Last Admin: 11/23/16 21:52 Dose: 10 mg - Labs Labs: 11/24/16 06:37 11/24/16 06:29 PT 14.0 SECONDS (9.7-12.2) H 11/22/16 20:42 INR 1.2 11/22/16 20:42 APTT 41 SECONDS (21-34) H 11/22/16 20:42 - Additional Findings Additional findings: - Head Exam Head Exam: ATRAUMATIC, NORMAL INSPECTION, NORMOCEPHALIC Additional comments: no facial droop noted - Eye Exam Eye Exam: EOMI Pupil Exam: PERRL - ENT Exam ENT Exam: Mucous Membranes Moist - Neck Exam Neck exam: Positive for: Normal Inspection - Respiratory Exam Respiratory Exam: Chest Wall Tenderness, Clear to Auscultation Bilateral, NORMAL BREATHING PATTERN - Cardiovascular Exam Cardiovascular Exam: REGULAR RHYTHM, +S1, +S2 Tenderness to palpation of Left chest wall. - GI/Abdominal Exam GI & Abdominal Exam: Normal Bowel Sounds, Soft. absent: Tenderness - Extremities Exam Extremities exam: Positive for: normal inspection, pedal pulses present. Negative for: tenderness - Back Exam Back exam: absent: CVA tenderness (L), CVA tenderness (R) - Neurological Exam Neurological exam: Alert, Oriented x3 Additional comments: pt shows no evidence of facial droop MS: 5/5 in all extremities No dysmetria; light touch intact globally - Psychiatric Exam Psychiatric exam: Normal Affect, Normal Mood - Skin Skin Exam: Normal Color, Warm Assessment and Plan - Assessment and Plan (Free Text) Assessment: Chest pain 11/24: Stress test with Dr. Buenrostro - Normal perfusion, EF 65-70%, grossly normal. see full report. D/C Crestor 10mg PO daily. 11/23: pain to palpation of Left chest wall. Consult Cardio, Dr. Buenrostro -> Audra stress test 11/24 in AM. Consult Cardiology, Dr. Buenrostro, f/u recs -crestor was ordered, however I recommend d/c of the statin. the decision is based on the fact that dyslipidemia is a 5-10 yr risk factor, given the patients life expectance weighed against risk of additional medication complications. -if st is negative then would d/c asa as well. Stabbing, anterior chest wall pain with palpation, worse with inspiration Observe on telemetry EKG: SR w/ premature atrial complexes, no acute ST/T wave changes LAURIE: negative x 3 BNP: 91.4 (WNL) ASA 325mg PO ONCE ASA 81 mg PO Daily Crestor 10mg PO HS O2 2L PRN f/u hemoglobin a1c tsh, free t4 - WNL Triglyc 150 H ; Cholest 175; LDL 136; HDL 21 Hx of Infective Endocarditis 11/23: Consult ID, Dr. Keenan, f/u recs. 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 Minor, help appreciated - f/u recs Intractable Pain HOLD home regimen: Morphine 60mg PO BID, Hydromorphone 4mg PO Q3H PRN Start Dilaudid 2mg IV Q4H PRN Consider pain consult in AM Anemia Hgb 8.2 Continue to monitor. type and screen. Facial numbness Hx of CVA, Lung Cancer No weakness in any extremity, no facial droop, pt admits altered sensation on CN exam CT Head: no acute findings (wet read per [facility]ads, f/u official reading) Diarrhea Pt reports being on antibiotic, multiple episodes of diarrhea over last 3 days -f/u C. Diff, stool culture, occult blood, leukocytes, ova and parasites ( UNCOLLECTED) Electrolyte Abnormalities hypokalemia: 3.2 on admission - repleted with Kdur 40mg x 2 Monitor Prophylaxis SCDs Protonix 40mg IV Daily Lovenox 40mg PO Daily <Danny Caraballo - Last Filed: 11/25/16 14:04> Objective - Vital Signs/Intake and Output Vital Signs (last 24 hours): Temp Pulse Resp BP Pulse Ox 98.1 F 104 H 14 103/61 100 11/25/16 13:36 11/25/16 13:36 11/25/16 13:36 11/25/16 13:36 11/25/16 04:00 Intake and Output: 11/25/16 11/25/16 06:59 18:59 Intake Total 1000 0 Output Total 1300 Balance -300 0 - Medications Medications: Current Medications Albuterol (Ventolin Hfa 90 Mcg/Actuation (8 G)) 2 puff IH RQ6 [facility] Last Admin: 11/25/16 09:08 Dose: 2 puff Aspirin (Ecotrin) 81 mg PO DAILY [facility] Last Admin: 11/25/16 09:43 Dose: 81 mg Enoxaparin Sodium (Lovenox) 40 mg SC DAILY [facility] Last Admin: 11/25/16 09:43 Dose: 40 mg Hydromorphone HCl (Dilaudid) 2 mg IVP Q4H PRN PRN Reason: Pain, severe (8-10) Last Admin: 11/25/16 10:33 Dose: 2 mg Telavancin 750 mg/ Sodium (Chloride) 100 mls @ 100 mls/hr IVPB Q24H [facility] Last Admin: 11/24/16 12:34 Dose: 100 mls/hr Pantoprazole Sodium (Protonix Inj) 40 mg IVP DAILY [facility] Last Admin: 11/25/16 09:43 Dose: 40 mg Quetiapine Fumarate (Seroquel) 25 mg PO Q8H [facility] Last Admin: 11/25/16 09:43 Dose: 25 mg - Labs Labs: 11/25/16 06:39 11/25/16 06:27 PT 14.0 SECONDS (9.7-12.2) H 11/22/16 20:42 INR 1.2 11/22/16 20:42 APTT 41 SECONDS (21-34) H 11/22/16 20:42 Attending/Attestation - Attestation I have personally seen and examined this patient.: Yes I have fully participated in the care of the patient.: Yes I have reviewed all pertinent clinical information, including history, physical exam and plan: Yes Notes (Text): 11/25/16 14:04 Patient was seen and examined at bedside with the resident Patient is awake alert and states the chest pain is improving Patient had nuclear stress test today We are awaiting final results of the stress test Continue current management I discussed the plan of care with the resident and I agree with the above assessment and plan by the resident
--- NOTE | 2016-11-24 11:32 | CP.PCM.CON ---
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 pain described as stabbing over left chest and upper abdomen. 10/10 in severity. denies prior hx of this specific pain. positive associated sob, palp, diaphoresis. Lasts 10 min and resolves. He states his current pain regimen normally reduces his pain "to a manageable level," but it did not help today. denies n/v. positive for diarrhea. no hx of cad, however he did get radiation to left chest. also strong fam hx of cad and pt is currently a tobacco user. He also admits to having multiple episodes of non-bloody diarrhea over the past three days. He has recent history of antibiotic use, but he does not know the name or the reason for its use. He further reports reduced facial sensation, and has history of stroke. He denies sequelae from CVA on previous admission. Patient is on home oxygen of 2 liters. Should be noted pt has a hx of endocarditis. Review of Systems - Constitutional Constitutional: absent: As Per HPI, Anorexia, Chills, Daytime Sleepiness, Excessive Sweating, Fatigue, Fever, Frequent Falls, Headache, Increased Appetite , Lethargy, Malaise, Night Sweats, Snoring, Sleep Apnea, Weight Gain, Weight Loss, Weakness, Other - EENT Eyes: As Per HPI Ears: absent: As Per HPI, Decreased Hearing, Ear Discharge, Ear Pain, Tinnitus, Abnormal Hearing, Disequilibrium, Dizziness, Other Nose/Mouth/Throat: absent: As Per HPI, Epistaxis, Nasal Congestion, Nasal Discharge, Nasal Obstruction, Nasal Trauma, Nose Pain, Post Nasal Drip, Sinus Pain, Sinus Pressure, Bleeding Gums, Change in Voice, Dental Pain, Dry Mouth, Dysphagia, Halitosis, Hoarsness, Lip Swelling, Mouth Lesions, Mouth Pain, Odynophagia, Sore Throat, Throat Swelling, Tongue Swelling, Facial Pain, Neck Pain, Neck Mass, Other - Cardiovascular Cardiovascular: As Per HPI - Respiratory Respiratory: As Per HPI - Gastrointestinal Gastrointestinal: As Per HPI - Genitourinary Genitourinary: absent: As Per HPI, Change in Urinary Stream, Difficulty Urinating, Dysuria, Flank Pain, Hematuria, Pyuria, Nocturia, Urinary Incontinence, Urinary Frequency, Urinary Hesitance, Urinary Urgency, Voiding Freq/Small Amts, Freq UTI, Hx Renal/Bladder Calculi, Hx /Renal Surgery, Bladder Distension, Other - Musculoskeletal Musculoskeletal: absent: As Per HPI, Abnormal Gait, Arthralgias, Atrophy, Back Pain, Deformity, Joint Swelling, Limited Range of Motion, Loss of Height, Muscle Cramps, Muscle Weakness, Myalgias, Neck Pain, Numbness, Radiating Pain into Limb, Stiffness, Tingling, Other - Integumentary Integumentary: absent: As Per HPI, Acne, Alopecia, Bleeding Lesions, Change in Hair, Change in Nails, Change in Pigmentation, Changing Lesions, Dry Skin, Erythema, Furuncle, Hirsutism, Lesions, New Lesions, Non-Healing Lesions, Photosensitivity, Pruritus, Rash, Skin Pain, Skin Ulcer, Sores, Striae, Swelling , Unusual Bruising, Wounds, Jaundice, Other - Neurological Neurological: Loss of Vision - Psychiatric Psychiatric: absent: As Per HPI, Abnormal Sleep Pattern, Anhedonia, Anxiety, Auditory Hallucinations, Behavioral Changes, Change in Appetite, Change in Libido, Confusion, Depression, Difficulty Concentrating, Hallucinations, Homicidal Ideation, Hopelessness, Irritability, Memory Loss, Mood Swings, Panic Attacks, Paranoia, Suicidal Ideation, Visual Hallucinations, Tactile Hallucinations, Other - Endocrine Endocrine: absent: As Per HPI, Change in Body Appearance, Change in Libido, Cold Intolorance, Deepening of Voice, Excessive Sweating, Fatigue, Flushing, Heat Intolorance, Increase in Ring/Shoe/Hat Size, Palpitations, Polydipsia, Polyphagia, Polyuria, Other - Hematologic/Lymphatic Hematologic: As Per HPI Past Patient History - Infectious Disease Hx of Infectious Diseases: None - Past Medical History & Family History Past Medical History?: Yes - Past Social History Smoking Status: Heavy Smoker > 10 Cigarettes Daily - CARDIAC Hx Hypertension: Yes - PULMONARY Hx Asthma: Yes - NEUROLOGICAL Hx Neurological Disorder: Yes HX Cerebrovascular Accident: Yes (left eye blindness) Other/Comment: left eye blindness post cva - HEENT Hx HEENT Problems: Yes Hx Blind: Yes (left eye blind) - RENAL Hx Chronic Kidney Disease: No - ENDOCRINE/METABOLIC Hx Endocrine Disorders: No - HEMATOLOGICAL/ONCOLOGICAL Hx Blood Disorders: Yes Hx Cancer: Yes (LUNG CANCER) - INTEGUMENTARY Hx Dermatological Problems: No - MUSCULOSKELETAL/RHEUMATOLOGICAL Hx Musculoskeletal Disorders: Yes Hx Falls: Yes Other/Comment: HX: BILATERAL HERNIA(S). HX: LEFT ROTATOR CUFF TEAR - GASTROINTESTINAL Hx Gastrointestinal Disorders: No - GENITOURINARY/GYNECOLOGICAL Hx Genitourinary Disorders: No - PSYCHIATRIC Hx Psychophysiologic Disorder: No Hx Substance Use: No - SURGICAL HISTORY Hx Surgeries: Yes Hx Herniorrhaphy: Yes (BILATERAL HERNIA REPAIR) Hx Musculoskeletal Surgery: Yes (LEFT ROTATOR CUFF) Other/Comment: yari catheter removed - ANESTHESIA Hx Anesthesia: Yes Hx Anesthesia Reactions: No Hx Malignant Hyperthermia: No Meds Allergies/Adverse Reactions: Allergies Allergy/AdvReac Type Severity Reaction Status Date / Time Penicillins Allergy SWELLING Verified 11/22/16 20:16 strawberry Allergy SWELLING Verified 11/22/16 20:16 all seafoods Allergy SWELLING Uncoded 11/22/16 20:16 iodinated IV dye Allergy SWELLING Uncoded 11/22/16 20:16 - Medications Medications: Current Medications Albuterol (Ventolin Hfa 90 Mcg/Actuation (8 G)) 2 puff IH RQ6 [facility] Last Admin: 11/24/16 07:54 Dose: Not Given Aspirin (Ecotrin) 81 mg PO DAILY [facility] Last Admin: 11/23/16 10:04 Dose: 81 mg Enoxaparin Sodium (Lovenox) 40 mg SC DAILY [facility] Last Admin: 11/23/16 10:04 Dose: 40 mg Hydromorphone HCl (Dilaudid) 2 mg IVP Q4H PRN PRN Reason: Pain, severe (8-10) Last Admin: 11/24/16 10:32 Dose: 2 mg Telavancin 750 mg/ Sodium (Chloride) 100 mls @ 100 mls/hr IVPB Q24H [facility] Pantoprazole Sodium (Protonix Inj) 40 mg IVP DAILY [facility] Last Admin: 11/23/16 10:03 Dose: 40 mg Quetiapine Fumarate (Seroquel) 25 mg PO Q8H [facility] Last Admin: 11/24/16 00:45 Dose: Not Given Physical Exam - Constitutional Appears: Non-toxic, No Acute Distress - Head Exam Head Exam: ATRAUMATIC, NORMAL INSPECTION, NORMOCEPHALIC - Eye Exam Eye Exam: EOMI, PERRL Pupil Exam: NORMAL ACCOMODATION Additional comments: in right eye - ENT Exam ENT Exam: Mucous Membranes Moist, Normal Exam - Neck Exam Neck exam: Positive for: Normal Inspection - Respiratory Exam Additional comments: decreased bs on left side - Cardiovascular Exam Cardiovascular Exam: Diastolic murmur, REGULAR RHYTHM, +S1, +S2 Additional comments: heart sounds distant - GI/Abdominal Exam GI & Abdominal Exam: Normal Bowel Sounds, Soft. absent: Tenderness - Extremities Exam Extremities exam: Positive for: normal inspection - Back Exam Back exam: NORMAL INSPECTION - Neurological Exam Neurological exam: Oriented x3 - Psychiatric Exam Psychiatric exam: Normal Mood - Skin Skin Exam: Dry, Intact, Normal Color, Warm Results - Vital Signs Recent Vital Signs: Last Vital Signs Temp 98.9 F 11/24/16 08:00 Pulse 86 11/24/16 09:47 Resp 19 11/24/16 08:00 BP 113/73 11/24/16 08:00 Pulse Ox 99 11/24/16 08:00 - Labs Result Diagrams: 11/24/16 06:37 11/24/16 06:29 Labs: Laboratory Results - last 24 hr 11/24/16 11/24/16 11/24/16 06:29 06:37 06:58 WBC 4.9 RBC 2.47 L Hgb 7.7 L Hct 23.1 L MCV 93.2 MCH 30.9 MCHC 33.2 RDW 20.3 H Plt Count 128 L D MPV 7.9 Neut % (Auto) 59.1 Lymph % (Auto) 24.5 Traill % (Auto) 13.8 H Eos % (Auto) 1.9 Baso % (Auto) 0.7 Neut # 2.9 Lymph # 1.2 Traill # 0.7 Eos # 0.1 Baso # 0.0 Sodium 137 Potassium 4.0 Chloride 95 L Carbon Dioxide 29 Anion Gap 17 BUN 8 L Creatinine 0.7 L Est GFR ( Amer) > 60 Est GFR (Non-Af Amer) > 60 Random Glucose 108 Calcium 9.0 Phosphorus 5.8 H Magnesium 1.8 Total Bilirubin 0.1 L AST 10 L D ALT 11 L D Alkaline Phosphatase 66 Total Protein 6.3 Albumin 3.2 L Globulin 3.1 Albumin/Globulin Ratio 1.0 Blood Type O NEGATIVE Antibody Screen Negative - EKG Data EKG Interpreted by: Myself EKG shows normal: Sinus rhythm Rate: Normal Assessment & Plan (1) COPD (chronic obstructive pulmonary disease) Status: Acute (2) Chest pain Status: Acute (3) Dyspnea Status: Acute (4) Lung cancer Status: Chronic (5) Blindness of left eye Status: Acute (6) DVT of upper extremity (deep vein thrombosis) Status: Acute (7) Hyperlipidemia Status: Acute (8) Hypertension Status: Acute (9) Pancoast tumor of left lung Status: Acute (10) History of lobectomy of lung Status: Acute (11) Radiation injury Status: Acute - Assessment and Plan (Free Text) Assessment: pt with a long and complicated medical hx with multiple admissions. pt has lung ca treated with multilobe resection, chemo and radiation. has had multiple complications from treatment side effects. recently had infection of left subclavian port, and a listed hx of endocarditis. i have reviewed all prior cardiac images and all charts. discussed hx with pt at length. Stress test was ordered given sx and abn ekg and radiation to chest. during the pt had midsternal chest pressure which varied from his admitting pain. no st changes. nuc images pending. crestor was ordered, however I recommend d/c of the statin. the decision is based on the fact that dyslipidemia is a 5-10 yr risk factor, given the patients life expectance weighed against risk of additional medication complications. if st is negative then would d/c asa as well. monitor vitals. multiple pacs noted on st, would check mag and repleat. check k and repleat. continue current care per team. d/w staff and primary team. 90 min total care time.
[2016-11-24] MEDS: Telavancin Hydrochloride 750 MG in Sodium Chloride 0.9% 100 ML IVPB SCH (12:34)
[2016-11-24] MEDS: Enoxaparin 40 mg Syringe SC SCH (12:35)
--- NOTE | 2016-11-24 17:40 | CARD ---
APPROVED REPORT Protocol: PHARMACOLOGICAL STRESS Test Type: LEXISCAN Test Indications: CHEST PAIN,DYSPNEA Medications: LIST SCAN Medical History: CHESTPAIN,INTRATABLE PAIN,DYSPNEA, LUNG Target HR: 169 bpm Resting ECG: SR AT 95, LIMB LEADS LOW VOLTAGE, PAC Resting Heart Rate: 94 bpm Resting Blood Pressure: 130/70mmHg submaximum (85%): 144 bpm TEST SUMMARY [id number]/70.0. INFUSIONDOSE 100:[id number]/70.0. [id number]/60.0. PROCEDURE Pharmacologic stress testing was performed using 0.4mg per 5ml of regadenoson given intravenously over 7-10 seconds. POST EXERCISE Target HR: No Max HR: 100 bpm 67% of Maximum Predicted HR: 169 bpm Exercise duration: 00:35 min:sec, 0 Stage Exercise capacity: 1.0METs Max Blood Pressure: 138/60mmHg Blood Pressure response to exercise: normal resting BP - blunted response Heart Rate response to exercise: appropriate Chest Pain: Yes, non-limiting Angina index: 0 Arrhythmia: Yes, atrial premature beats ST Change: No, none Deviation: 0 mm INTERPRETATION Stress EKG Conclusion: SYMPTOMATIC (CHEST HEAVINESS), NONISCHEMIC LEXISCAN ST. PACS PRE INFUSION AND POST INFUSION. CP RESOLVED ON OWN. EXAM: Myocardial Perfusion REST/STRESS Imaging Protocol The imaging protocol used to acquire images was Rest Tc-99m/stress Tc-99m 1 day Rest Spect myocardial perfusion imaging was performed in supine position 45 minutes following the injection of 13. 1 mCi of Tc-99 Myoview. Gated Stress Spect was performed 45 minutes after intravenous 32.6 mCi Tc-99 Myoview injection. The images were gated to evaluate regional wall motion and calculate ventricular ejection fraction.Images were reconstructed using backfilter projection method in short horizontal and verticle long axis. Spect slices were generated. RESTING DATA [id number]/min ESV34.00mlMyocardial Tegf802.00g Av. Heart Rate96.00bpm EF71.00% STRESS DATA NAK986.49ybPB0.80L/min ESV30.00mlMyocardial Cobw542.00g EF72.00% Regional WT score at stress:2.00 Regional WM score at stress:0.00 Summed WT score at stress:12.00 Av. Heart Rate99.00bpmSummed WM score at stress:2.00 Study quality was excellent. Left Ventricular size was Normal at Rest and Stress. The rest and stress images show normal perfusion, normal contraction and thickening. LV Perf. Quant 17 Seg. SSS0.00 17 Seg. SRS0.00 17 Seg. SDS0.00 Stress Defect Extent (% LAD)0.00Rest Defect Extent (% LAD)0.00Rev. Defect Extent (% LAD)0.00 Stress Defect Extent (% LCX)0.00Rest Defect Extent (% LCX)0.00Rev. Defect Extent (% LCX)0.00 Stress Defect Extent (% RCA)0.00Rest Defect Extent (% RCA)0.00Rev. Defect Extent (% RCA)0.00 Stress Defect Extent (% SRIRAM)0.00Rest Defect Extent (% SRIRAM)0.00Rev. Defect Extent (% SRIRAM)0.00 Other Information Quality:Excellent IMPRESSION Normal Myocardial Perfusion exercise stress study Left Ventricle LV Size/Shape: The left ventricle is normal size. LV Function:Left ventricle systolic function is normal. The Ejection Fraction is 65-70%. Regional Wall Motion:No regional wall motion abnormalities noted. Metabolism/Perfusion There are no defects. Conclusion 1. The stress and resting images show normal perfusion. 2. There are no significant stress EKG changes or ST changes noted.
--- NOTE | 2016-11-24 19:42 | CP.PCM.PN ---
Subjective - Date & Time of Evaluation Date of Evaluation: 11/24/16 Time of Evaluation: 08:00 - Subjective Subjective: seen by cardio] rx in progress Objective - Vital Signs/Intake and Output Vital Signs (last 24 hours): Temp Pulse Resp BP Pulse Ox 96.8 F L 111 H 20 118/81 99 11/24/16 16:00 11/24/16 16:00 11/24/16 16:00 11/24/16 16:00 11/24/16 16:00 Intake and Output: 11/24/16 11/25/16 18:59 06:59 Intake Total 640 Output Total 1000 Balance -360 - Medications Medications: Current Medications Albuterol (Ventolin Hfa 90 Mcg/Actuation (8 G)) 2 puff IH RQ6 [facility] Last Admin: 11/24/16 15:00 Dose: Not Given Aspirin (Ecotrin) 81 mg PO DAILY [facility] Last Admin: 11/24/16 12:35 Dose: 81 mg Enoxaparin Sodium (Lovenox) 40 mg SC DAILY [facility] Last Admin: 11/24/16 12:35 Dose: 40 mg Hydromorphone HCl (Dilaudid) 2 mg IVP Q4H PRN PRN Reason: Pain, severe (8-10) Last Admin: 11/24/16 18:31 Dose: 2 mg Telavancin 750 mg/ Sodium (Chloride) 100 mls @ 100 mls/hr IVPB Q24H [facility] Last Admin: 11/24/16 12:34 Dose: 100 mls/hr Pantoprazole Sodium (Protonix Inj) 40 mg IVP DAILY [facility] Last Admin: 11/24/16 12:34 Dose: 40 mg Quetiapine Fumarate (Seroquel) 25 mg PO Q8H [facility] Last Admin: 11/24/16 15:35 Dose: 25 mg - Labs Labs: 11/24/16 06:37 11/24/16 06:29 PT 14.0 SECONDS (9.7-12.2) H 11/22/16 20:42 INR 1.2 11/22/16 20:42 APTT 41 SECONDS (21-34) H 11/22/16 20:42 - Constitutional Appears: Non-toxic, Chronically Ill - Head Exam Head Exam: NORMOCEPHALIC - Eye Exam Eye Exam: absent: Scleral icterus - ENT Exam ENT Exam: Mucous Membranes Dry - Neck Exam Neck Exam: absent: Lymphadenopathy - Respiratory Exam Respiratory Exam: Decreased Breath Sounds, Clear to Ausculation Bilateral - Cardiovascular Exam Cardiovascular Exam: REGULAR RHYTHM, +S1, +S2 - GI/Abdominal Exam GI & Abdominal Exam: Distended, Soft. absent: Tenderness - Rectal Exam Rectal Exam: Deferred Assessment and Plan (1) COPD (chronic obstructive pulmonary disease) Status: Acute (2) Chest pain Status: Acute (3) Dyspnea Status: Acute (4) Lung cancer Status: Chronic (5) Endocarditis due to methicillin susceptible Staphylococcus aureus (MSSA) Status: Acute
--- NOTE | 2016-11-24 21:37 | CARD ---
APPROVED REPORT EKG Measurement Heart [id number] [place] [id number] <Conclusion> Normal sinus rhythm Normal ECG
--- NOTE | 2016-11-24 21:38 | CARD ---
APPROVED REPORT EKG Measurement Heart [id number] [place] [id number] [id number] <Conclusion> Sinus rhythm with premature supraventricular complexes Otherwise normal ECG
[2016-11-25] MEDS: Albuterol HFA 90 mcg/actuation (8 g) IH SCH ×3 (01:09→14:20)
[2016-11-25 06:35] LABS: BASO % 0.7 % (0.0-2.0); EOS # 0.1 K/uL (0.0-0.7); EOS % 1.8 % (0.0-4.0); HEMATOCRIT 21.6 % (35.0-51.0); LYMPH # 1.1 K/uL (1.0-4.3); LYMPH % 25.8 % (20.0-40.0); MEAN CELL VOLUME 93.4 fL (80.0-94.0); MEAN CORPUSCULAR HGB CONC 33.2 g/dL (33.0-37.0); MEAN PLATELET VOLUME 7.6 fL (7.2-11.7); MONO # 0.6 K/uL (0.0-0.8); MONO % 12.7 % (0.0-10.0); RED CELL DISTRIBUTION WIDTH 19.6 % (11.5-14.5); WHITE BLOOD COUNT 4.4 K/uL (4.8-10.8)
[2016-11-25 06:43] LABS: CHLORIDE 96 mmol/L (98-107); POTASSIUM 3.9 mmol/L (3.6-5.2); SODIUM 135 mmol/L (132-148)
[2016-11-25 06:45] LABS: BILIRUBIN,TOTAL 0.2 mg/dL (0.2-1.3); GFR AFRICAN-AMERICAN > 60
[2016-11-25 06:46] LABS: ALB/GLOB RATIO 1.1 (1.0-2.1); ALKALINE PHOSPHATASE 68 U/L (38-126); ALT/SGPT 11 U/L (21-72); AST/SGOT 10 U/L (17-59); BLOOD UREA NITROGEN 10 mg/dL (9-20); CALCIUM 8.6 mg/dl (8.6-10.4); CARBON DIOXIDE 27 mmol/L (22-30); GLUCOSE,RANDOM 101 mg/dL (75-110); PHOSPHOROUS 5.4 mg/dL (2.5-4.5); TOTAL PROTEIN 6.3 g/dL (6.3-8.3)
--- NOTE | 2016-11-25 08:35 | CP.PCM.PN ---
Subjective - Date & Time of Evaluation Date of Evaluation: 11/25/16 Time of Evaluation: 08:30 - Subjective Subjective: Patient seen and examined. Lying comfortably in no acute distress Denies shortness of breath, denies fever or chills, denies chest pain Seen by cardiology Afebrile Objective - Vital Signs/Intake and Output Vital Signs (last 24 hours): Temp Pulse Resp BP Pulse Ox 98.3 F 91 H 14 109/68 100 11/25/16 00:12 11/25/16 06:00 11/25/16 06:00 11/25/16 06:00 11/25/16 04:00 Intake and Output: 11/25/16 11/25/16 06:59 18:59 Intake Total 1000 Output Total 1300 Balance -300 - Medications Medications: Current Medications Albuterol (Ventolin Hfa 90 Mcg/Actuation (8 G)) 2 puff IH RQ6 [facility] Last Admin: 11/25/16 01:09 Dose: Not Given Aspirin (Ecotrin) 81 mg PO DAILY [facility] Last Admin: 11/24/16 12:35 Dose: 81 mg Enoxaparin Sodium (Lovenox) 40 mg SC DAILY [facility] Last Admin: 11/24/16 12:35 Dose: 40 mg Hydromorphone HCl (Dilaudid) 2 mg IVP Q4H PRN PRN Reason: Pain, severe (8-10) Last Admin: 11/25/16 06:18 Dose: 2 mg Telavancin 750 mg/ Sodium (Chloride) 100 mls @ 100 mls/hr IVPB Q24H [facility] Last Admin: 11/24/16 12:34 Dose: 100 mls/hr Pantoprazole Sodium (Protonix Inj) 40 mg IVP DAILY [facility] Last Admin: 11/24/16 12:34 Dose: 40 mg Quetiapine Fumarate (Seroquel) 25 mg PO Q8H [facility] Last Admin: 11/25/16 00:11 Dose: 25 mg - Labs Labs: 11/25/16 06:39 11/25/16 06:27 PT 14.0 SECONDS (9.7-12.2) H 11/22/16 20:42 INR 1.2 11/22/16 20:42 APTT 41 SECONDS (21-34) H 11/22/16 20:42 - Head Exam Head Exam: ATRAUMATIC, NORMOCEPHALIC - Eye Exam Eye Exam: Normal appearance - ENT Exam ENT Exam: Mucous Membranes Moist - Neck Exam Neck Exam: Normal Inspection - Respiratory Exam Respiratory Exam: Decreased Breath Sounds - Cardiovascular Exam Cardiovascular Exam: REGULAR RHYTHM - GI/Abdominal Exam GI & Abdominal Exam: Soft, Normal Bowel Sounds - Extremities Exam Extremities Exam: Normal Inspection Assessment and Plan (1) Lung mass Status: Acute (2) COPD (chronic obstructive pulmonary disease) Assessment & Plan: Continue nebulizer treatment Stable from pulmonary standpoint Status: Chronic
[2016-11-25] MEDS: Enoxaparin 40 mg Syringe SC SCH (09:43)
--- NOTE | 2016-11-25 12:30 | CP.PCM.PN ---
Subjective - Date & Time of Evaluation Date of Evaluation: 11/25/16 Time of Evaluation: 11:00 - Subjective Subjective: PT W/O PAIN TODAY. STRESS TEST NEGATIVE. Objective - Vital Signs/Intake and Output Vital Signs (last 24 hours): Temp Pulse Resp BP Pulse Ox 97.4 F L 103 H 17 94/67 L 100 11/25/16 11:56 11/25/16 11:56 11/25/16 11:56 11/25/16 11:56 11/25/16 04:00 Intake and Output: 11/25/16 11/25/16 06:59 18:59 Intake Total 1000 0 Output Total 1300 Balance -300 0 - Medications Medications: Current Medications Albuterol (Ventolin Hfa 90 Mcg/Actuation (8 G)) 2 puff IH RQ6 [facility] Last Admin: 11/25/16 09:08 Dose: 2 puff Aspirin (Ecotrin) 81 mg PO DAILY [facility] Last Admin: 11/25/16 09:43 Dose: 81 mg Enoxaparin Sodium (Lovenox) 40 mg SC DAILY [facility] Last Admin: 11/25/16 09:43 Dose: 40 mg Hydromorphone HCl (Dilaudid) 2 mg IVP Q4H PRN PRN Reason: Pain, severe (8-10) Last Admin: 11/25/16 10:33 Dose: 2 mg Telavancin 750 mg/ Sodium (Chloride) 100 mls @ 100 mls/hr IVPB Q24H [facility] Last Admin: 11/24/16 12:34 Dose: 100 mls/hr Pantoprazole Sodium (Protonix Inj) 40 mg IVP DAILY [facility] Last Admin: 11/25/16 09:43 Dose: 40 mg Quetiapine Fumarate (Seroquel) 25 mg PO Q8H [facility] Last Admin: 11/25/16 09:43 Dose: 25 mg - Labs Labs: 11/25/16 06:39 11/25/16 06:27 PT 14.0 SECONDS (9.7-12.2) H 11/22/16 20:42 INR 1.2 11/22/16 20:42 APTT 41 SECONDS (21-34) H 11/22/16 20:42 - Constitutional Appears: Well - Head Exam Head Exam: ATRAUMATIC, NORMAL INSPECTION, NORMOCEPHALIC - Eye Exam Eye Exam: EOMI, Normal appearance, PERRL Pupil Exam: NORMAL ACCOMODATION, PERRL - ENT Exam ENT Exam: Mucous Membranes Moist, Normal Exam - Neck Exam Neck Exam: Full ROM, Normal Inspection. absent: Lymphadenopathy - Respiratory Exam Respiratory Exam: Decreased Breath Sounds - Cardiovascular Exam Cardiovascular Exam: REGULAR RHYTHM, +S1, +S2, Murmur - GI/Abdominal Exam GI & Abdominal Exam: Soft, Normal Bowel Sounds. absent: Tenderness - Rectal Exam Rectal Exam: NORMAL INSPECTION - Extremities Exam Extremities Exam: Full ROM, Normal Capillary Refill, Normal Inspection. absent : Joint Swelling, Pedal Edema - Back Exam Back Exam: NORMAL INSPECTION - Neurological Exam Neurological Exam: Alert, Awake, CN II-XII Intact, Normal Gait, Oriented x3 - Psychiatric Exam Psychiatric exam: Normal Affect, Normal Mood - Skin Skin Exam: Dry, Intact, Normal Color, Warm Assessment and Plan (1) COPD (chronic obstructive pulmonary disease) Status: Chronic (2) Chest pain Status: Resolved (3) Dyspnea Status: Chronic (4) Lung cancer Status: Chronic (5) Blindness of left eye Status: Chronic (6) DVT of upper extremity (deep vein thrombosis) Status: Chronic (7) Hyperlipidemia Status: Chronic (8) Hypertension Status: Chronic (9) Pancoast tumor of left lung Status: Chronic (10) History of lobectomy of lung Status: Chronic (11) Radiation injury Status: Chronic (12) Tobacco abuse Status: Acute - Assessment and Plan (Free Text) Plan: PT STABLE FROM CARDIAC PERSPECTIVE PAIN IS LIKELY SECONDARY TO SCAR TISSUE OR POST RADIATION HR AND BP STABLE.
[2016-11-25] MEDS: Telavancin Hydrochloride 750 MG in Sodium Chloride 0.9% 100 ML IVPB SCH (14:55)
--- NOTE | 2016-11-25 17:49 | CP.PCM.PN ---
Subjective - Date & Time of Evaluation Date of Evaluation: 11/25/16 Time of Evaluation: 08:00 - Subjective Subjective: feels better Objective - Vital Signs/Intake and Output Vital Signs (last 24 hours): Temp Pulse Resp BP Pulse Ox 98 F 94 H 14 101/70 100 11/25/16 15:00 11/25/16 15:00 11/25/16 15:00 11/25/16 15:00 11/25/16 04:00 Intake and Output: 11/25/16 11/25/16 06:59 18:59 Intake Total 1000 1800 Output Total 1300 1650 Balance -300 150 - Medications Medications: Current Medications Albuterol (Ventolin Hfa 90 Mcg/Actuation (8 G)) 2 puff IH RQ6 [facility] Last Admin: 11/25/16 14:20 Dose: 2 puff Aspirin (Ecotrin) 81 mg PO DAILY [facility] Last Admin: 11/25/16 09:43 Dose: 81 mg Enoxaparin Sodium (Lovenox) 40 mg SC DAILY [facility] Last Admin: 11/25/16 09:43 Dose: 40 mg Hydromorphone HCl (Dilaudid) 2 mg IVP Q4H PRN PRN Reason: Pain, severe (8-10) Last Admin: 11/25/16 14:53 Dose: 2 mg Telavancin 750 mg/ Sodium (Chloride) 100 mls @ 100 mls/hr IVPB Q24H [facility] Last Admin: 11/25/16 14:55 Dose: 100 mls/hr Pantoprazole Sodium (Protonix Inj) 40 mg IVP DAILY [facility] Last Admin: 11/25/16 09:43 Dose: 40 mg Quetiapine Fumarate (Seroquel) 25 mg PO Q8H [facility] Last Admin: 11/25/16 09:43 Dose: 25 mg - Labs Labs: 11/25/16 06:39 11/25/16 06:27 PT 14.0 SECONDS (9.7-12.2) H 11/22/16 20:42 INR 1.2 11/22/16 20:42 APTT 41 SECONDS (21-34) H 11/22/16 20:42 - Constitutional Appears: Non-toxic, Chronically Ill - Head Exam Head Exam: NORMOCEPHALIC - Eye Exam Eye Exam: PERRL. absent: Scleral icterus - Neck Exam Neck Exam: absent: Lymphadenopathy - Respiratory Exam Respiratory Exam: Decreased Breath Sounds, Clear to Ausculation Bilateral - Cardiovascular Exam Cardiovascular Exam: REGULAR RHYTHM - GI/Abdominal Exam GI & Abdominal Exam: Distended, Soft. absent: Tenderness - Rectal Exam Rectal Exam: Deferred - Exam Exam: NORMAL INSPECTION - Extremities Exam Extremities Exam: absent: Pedal Edema - Back Exam Back Exam: absent: CVA tenderness (L), CVA tenderness (R) Assessment and Plan (1) COPD (chronic obstructive pulmonary disease) Status: Chronic (2) Dyspnea Status: Chronic (3) Lung cancer Status: Chronic (4) Endocarditis due to methicillin susceptible Staphylococcus aureus (MSSA) Status: Acute
[2016-11-25 18:16] VITALS: BP 113/70; PULSE 97; RESP 16; TEMP 97.9; O2SAT 94
--- NOTE | 2016-11-25 18:58 | CP.PCM.DIS ---
<AlfredkarinaJimmy - Last Filed: 11/26/16 02:47> Provider - Provider Date of Admission: 11/23/16 11:06 Attending physician: Aston Almonte MD Consults: Cardiology: Dr. Buenrostro ID: Dr. Ree Hendricksonc: Dr. Minor Time Spent in preparation of Discharge (in minutes): 40 Hospital Course - Lab Results Lab Results: Micro Results 11/23/16 Unknown Nose MRSA Culture (Admit) - Final MRSA NOT DETECTED Most Recent Lab Values WBC 4.4 K/uL (4.8-10.8) L 11/25/16 06:39 RBC 2.32 Mil/uL (4.40-5.90) L 11/25/16 06:39 Hgb 7.2 g/dL (12.0-18.0) L 11/25/16 06:39 Hct 21.6 % (35.0-51.0) L 11/25/16 06:39 MCV 93.4 fL (80.0-94.0) 11/25/16 06:39 MCH 31.0 pg (27.0-31.0) 11/25/16 06:39 MCHC 33.2 g/dL (33.0-37.0) 11/25/16 06:39 RDW 19.6 % (11.5-14.5) H 11/25/16 06:39 Plt Count 131 K/uL (130-400) 11/25/16 06:39 MPV 7.6 fL (7.2-11.7) 11/25/16 06:39 Neut % (Auto) 59.0 % (50.0-75.0) 11/25/16 06:39 Lymph % (Auto) 25.8 % (20.0-40.0) 11/25/16 06:39 [place] % (Auto) 12.7 % (0.0-10.0) H 11/25/16 06:39 Eos % (Auto) 1.8 % (0.0-4.0) 11/25/16 06:39 Baso % (Auto) 0.7 % (0.0-2.0) 11/25/16 06:39 Neut # 2.6 K/uL (1.8-7.0) 11/25/16 06:39 Lymph # 1.1 K/uL (1.0-4.3) 11/25/16 06:39 [place] # 0.6 K/uL (0.0-0.8) 11/25/16 06:39 Eos # 0.1 K/uL (0.0-0.7) 11/25/16 06:39 Baso # 0.0 K/uL (0.0-0.2) 11/25/16 06:39 PT 14.0 SECONDS (9.7-12.2) H 11/22/16 20:42 INR 1.2 11/22/16 20:42 APTT 41 SECONDS (21-34) H 11/22/16 20:42 pO2 34 mm/Hg (30-55) 11/22/16 21:00 VBG pH 7.43 (7.32-7.43) 11/22/16 21:00 VBG pCO2 42 mmHg (40-60) 11/22/16 21:00 VBG HCO3 26.6 mmol/L 11/22/16 21:00 VBG Total CO2 29.2 mmol/L (22-28) H 11/22/16 21:00 VBG O2 Sat (Calc) 65.1 % (40-65) H 11/22/16 21:00 VBG Base Excess 3.2 mmol/L (0.0-2.0) H 11/22/16 21:00 VBG Potassium 3.2 mmol/L (3.6-5.2) L 11/22/16 21:00 Sodium 137.0 mmol/l (132-148) 11/22/16 21:00 Chloride 108.0 mmol/L (98-107) H 11/22/16 21:00 Glucose 96 mg/dl (75-110) 11/22/16 21:00 Lactate 0.9 mmol/L (0.7-2.1) 11/22/16 21:00 Sodium 135 mmol/L (132-148) 11/25/16 06:27 Potassium 3.9 mmol/L (3.6-5.2) 11/25/16 06:27 Chloride 96 mmol/L (98-107) L 11/25/16 06:27 Carbon Dioxide 27 mmol/L (22-30) 11/25/16 06:27 Anion Gap 16 (10-20) 11/25/16 06:27 BUN 10 mg/dL (9-20) 11/25/16 06:27 Creatinine 0.7 MG/DL (0.8-1.5) L 11/25/16 06:27 Est GFR ( Amer) > 60 11/25/16 06:27 Est GFR (Non-Af Amer) > 60 11/25/16 06:27 Random Glucose 101 mg/dL (75-110) 11/25/16 06:27 Calcium 8.6 mg/dl (8.6-10.4) 11/25/16 06:27 Phosphorus 5.4 mg/dL (2.5-4.5) H 11/25/16 06:27 Magnesium 1.9 mg/dL (1.6-2.3) 11/25/16 06:27 Total Bilirubin 0.2 mg/dL (0.2-1.3) 11/25/16 06:27 AST 10 U/L (17-59) L 11/25/16 06:27 ALT 11 U/L (21-72) L 11/25/16 06:27 Alkaline Phosphatase 68 U/L (38-126) 11/25/16 06:27 Total Creatine Kinase < 20 U/L (55-170) L 11/23/16 10:26 CK-MB (Mass) 0.34 ng/mL (0.0-3.38) 11/23/16 10:26 Troponin I < 0.0120 ng/mL (0.00-0.120) 11/22/16 20:42 Troponin I, Quant < 0.0120 ng/mL (0.00-0.120) 11/23/16 10:26 NT-Pro-B Natriuret Pep 91.4 pg/mL (0-900) 11/22/16 20:42 Total Protein 6.3 g/dL (6.3-8.3) 11/25/16 06:27 Albumin 3.3 g/dL (3.5-5.0) L 11/25/16 06:27 Globulin 3.0 gm/dL (2.2-3.9) 11/25/16 06:27 Albumin/Globulin Ratio 1.1 (1.0-2.1) 11/25/16 06:27 Triglycerides 150 mg/dL (0-149) H D 11/23/16 05:55 Cholesterol 175 mg/dL (0-199) 11/23/16 05:55 LDL Cholesterol Direct 136 mg/dL (0-129) H 11/23/16 05:55 HDL Cholesterol 21 mg/dL (30-70) L 11/23/16 05:55 Free T4 1.15 ng/dL (0.78-2.19) 11/23/16 06:00 TSH 3rd Generation 4.30 mIU/L (0.46-4.68) 11/23/16 05:55 Venous Blood Potassium 3.2 mmol/L (3.6-5.2) L 11/22/16 21:00 Urine Color Yellow (YELLOW) 11/23/16 05:04 Urine Clarity Hazy (Clear) 11/23/16 05:04 Urine pH 6.0 (5.0-8.0) 11/23/16 05:04 Ur Specific [place] 1.024 (1.003-1.030) 11/23/16 05:04 Urine Protein 2+ mg/dL (NEGATIVE) H 11/23/16 05:04 Urine Glucose (UA) Normal mg/dL (Normal) 11/23/16 05:04 Urine Ketones Negative mg/dL (NEGATIVE) 11/23/16 05:04 Urine Blood Negative (NEGATIVE) 11/23/16 05:04 Urine Nitrate Negative (NEGATIVE) 11/23/16 05:04 Urine Bilirubin Negative (NEGATIVE) 11/23/16 05:04 Urine Urobilinogen Normal mg/dL (0.2-1.0) 11/23/16 05:04 Ur Leukocyte Esterase Neg Renato/uL (Negative) 11/23/16 05:04 Urine WBC (Auto) 3 /hpf (0-5) 11/23/16 05:04 Urine RBC (Auto) 3 /hpf (0-3) 11/23/16 05:04 Ur Squamous Epith Cells < 1 /hpf (0-5) 11/23/16 05:04 Hyaline Casts 0-2 /lpf (0-2) 11/23/16 05:04 Blood Type O NEGATIVE 11/24/16 06:58 Antibody Screen Negative 11/24/16 06:58 - Hospital Course Hospital Course: Upon hospital admission: 51M with PMHx of 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 Pt reports he has chest pain "everyday" because of his lung cancer which occurs diffusely over his chest wall, and he normally rates as 5-7/10. Today, the pain was "worse than normal" and he had no appetite so he decided to come to the ED. He describes the chest pain as a "stabbing, sharp" left sided pain, rates it as a 10/10 on the pain scale, which does not radiate. Pt reports the pain is made worse with inspiration, eating, and palpation of the chest wall. He states his current pain regimen normally reduces his pain "to a manageable level," but it did not help today. He also admits to having multiple episodes of non-bloody diarrhea over the past three days. He has recent history of antibiotic use, but he does not know the name or the reason for its use. He further reports reduced facial sensation, and has history of stroke. He denies sequelae from CVA on previous admission. Patient is on home oxygen of 2 liters. He denies fever, chills, dysuria, diaphoresis, or cough. PMD: Dr. Watson Oncologist: Dr. 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 Used to smoke 3-4 PPD, now smokes 1/2 PPD. Denies alcohol or illicit drug use. 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 Buenrostro showed Normal perfusion, EF 65-70%, grossly normal. see full report. As a result, Crestor 10mg PO daily was stopped. The decision is based on the fact that dyslipidemia is a 5-10 yr risk factor, given the patients life expectance weighed against risk of additional medication complications. EKG: SR w/ premature atrial complexes, no acute ST/T wave changes. LAURIE: negative x 3. Pt tx with ASA 325mg PO ONCE and ASA 81 mg PO Daily. Triglyc 150 H ; Cholest 175; LDL 136; HDL 21. (2) Hx of Infective Endocarditis for which we consulted ID, Dr. Keenan. Patient was continued on his home med Telavancin 750mg IVPB Q24. (3) Hx of Lung CA - Squamous Cell Carcinoma with Left Apical Pancoast Tumor. Per pt one week of radiation, one chemo treatment completed. Last treatment of chemo/radiation in "[place]." Hem/Onc consult: Dr. Minor, however patient will followup with him as an outpatient. (4) Intractable Pain for which HOLD home regimen: Morphine 60mg PO BID, Hydromorphone 4mg PO Q3H PRN. Instead patient was tx with Dilaudid 2mg IV Q4H PRN. (5) Anemia with Hgb as low as 7.2, for which patient was transfuse 1 unit of PRBC. (6) Facial numbness in out patient with Hx of CVA , Lung Cancer. No weakness in any extremity, no facial droop, pt admits altered sensation on CN exam. CT Head noted no acute findings - No intracranial mass, hemorrhage or evidence of acute infarct. Hyperdensity in left globe posterior chamber. Upon hospital discharge, the patient was provided with the following instructions: Patient is stable for discharge per Dr. Caraballo. Patient should resume all home medications as outlined in this document. These include the following treatments from your prior admission: at-home infusion of televancin and home physical therapy. Patient was also previously discharged home with duonebs, cepacol lozenges, guaifenesin/dextromethorphan, nystatin powder, protonix, and seroquel. For pain control, patient was previously discharged with: morphine sulfate ER 60mg PO q12 hours dispense #30, and dilaudid 4mg PO [id number] dispense #120 (some of which were recently filled with your PMD). If you require further pain management, please speak with your PMD or Oncologist. 1. Please make an appointment and follow up with your Primary Doctor Dr. Watson within one week of discharge regarding this hospital admission and ongoing medical treatment. 2. Please make an appointment and follow up with your Oncologist Dr. Minor within one week of discharge regarding this hospital admission and ongoing medical treatment. Patient should return to ED immediately if symptoms return or worsen. Instructions discussed with patient who understood and agreed. This is a summary of the patient's hospital admission, see chart for comprehensive detail. - Date & Time of H&P Date of H&P: 11/22/16 Time of H&P: 23:06 Discharge Exam - Additional Findings Additional findings: - Head Exam Head Exam: ATRAUMATIC, NORMAL INSPECTION, NORMOCEPHALIC Additional comments: no facial droop noted - Eye Exam Eye Exam: EOMI Pupil Exam: PERRL - ENT Exam ENT Exam: Mucous Membranes Moist - Neck Exam Neck exam: Positive for: Normal Inspection - Respiratory Exam Respiratory Exam: Chest Wall Tenderness, Clear to Auscultation Bilateral, NORMAL BREATHING PATTERN - Cardiovascular Exam Cardiovascular Exam: REGULAR RHYTHM, +S1, +S2 Tenderness to palpation of Left chest wall - over region of [place] tumor. - GI/Abdominal Exam GI & Abdominal Exam: Normal Bowel Sounds, Soft. absent: Tenderness - Extremities Exam Extremities exam: Positive for: normal inspection, pedal pulses present. Negative for: tenderness - Back Exam Back exam: absent: CVA tenderness (L), CVA tenderness (R) - Neurological Exam Neurological exam: Alert, Oriented x3 Additional comments: pt shows no evidence of facial droop MS: 5/5 in all extremities No dysmetria; light touch intact globally - Psychiatric Exam Psychiatric exam: Normal Affect, Normal Mood - Skin Skin Exam: Normal Color, Warm Discharge Plan - Follow Up Plan Condition: FAIR Disposition: HOME/ ROUTINE Instructions: Chest Pain (DC), Chronic Pain (DC) Additional Instructions: Patient is stable for discharge per Dr. Caraballo. Patient should resume all home medications as outlined in this document. These include the following treatments from your prior admission: at-home infusion of televancin and home physical therapy. Patient was also previously discharged home with duonebs, cepacol lozenges, guaifenesin/dextromethorphan, nystatin powder, protonix, and seroquel. For pain control, patient was previously discharged with: morphine sulfate ER 60mg PO q12 hours dispense #30, and dilaudid 4mg PO [id number] dispense #120 (some of which were recently filled with your PMD). If you require further pain management, please speak with your PMD or Oncologist. 1. Please make an appointment and follow up with your Primary Doctor Dr. Watson within one week of discharge regarding this hospital admission and ongoing medical treatment. 2. Please make an appointment and follow up with your Oncologist Dr. Minor within one week of discharge regarding this hospital admission and ongoing medical treatment. Patient should return to ED immediately if symptoms return or worsen. Instructions discussed with patient who understood and agreed. Referrals: Jonas Watson MD [Staff Provider] - <Danny Caraballo - Last Filed: 11/26/16 17:31> Provider - Provider Date of Admission: 11/23/16 11:06 Attending physician: Aston Almonte MD Hospital Course - Lab Results Lab Results: Micro Results 11/23/16 Unknown Nose MRSA Culture (Admit) - Final MRSA NOT DETECTED Most Recent Lab Values WBC 4.4 K/uL (4.8-10.8) L 11/25/16 06:39 RBC 2.32 Mil/uL (4.40-5.90) L 11/25/16 06:39 Hgb 7.2 g/dL (12.0-18.0) L 11/25/16 06:39 Hct 21.6 % (35.0-51.0) L 11/25/16 06:39 MCV 93.4 fL (80.0-94.0) 11/25/16 06:39 MCH 31.0 pg (27.0-31.0) 11/25/16 06:39 MCHC 33.2 g/dL (33.0-37.0) 11/25/16 06:39 RDW 19.6 % (11.5-14.5) H 11/25/16 06:39 Plt Count 131 K/uL (130-400) 11/25/16 06:39 MPV 7.6 fL (7.2-11.7) 11/25/16 06:39 Neut % (Auto) 59.0 % (50.0-75.0) 11/25/16 06:39 Lymph % (Auto) 25.8 % (20.0-40.0) 11/25/16 06:39 [place] % (Auto) 12.7 % (0.0-10.0) H 11/25/16 06:39 Eos % (Auto) 1.8 % (0.0-4.0) 11/25/16 06:39 Baso % (Auto) 0.7 % (0.0-2.0) 11/25/16 06:39 Neut # 2.6 K/uL (1.8-7.0) 11/25/16 06:39 Lymph # 1.1 K/uL (1.0-4.3) 11/25/16 06:39 [place] # 0.6 K/uL (0.0-0.8) 11/25/16 06:39 Eos # 0.1 K/uL (0.0-0.7) 11/25/16 06:39 Baso # 0.0 K/uL (0.0-0.2) 11/25/16 06:39 PT 14.0 SECONDS (9.7-12.2) H 11/22/16 20:42 INR 1.2 11/22/16 20:42 APTT 41 SECONDS (21-34) H 11/22/16 20:42 pO2 34 mm/Hg (30-55) 11/22/16 21:00 VBG pH 7.43 (7.32-7.43) 11/22/16 21:00 VBG pCO2 42 mmHg (40-60) 11/22/16 21:00 VBG HCO3 26.6 mmol/L 11/22/16 21:00 VBG Total CO2 29.2 mmol/L (22-28) H 11/22/16 21:00 VBG O2 Sat (Calc) 65.1 % (40-65) H 11/22/16 21:00 VBG Base Excess 3.2 mmol/L (0.0-2.0) H 11/22/16 21:00 VBG Potassium 3.2 mmol/L (3.6-5.2) L 11/22/16 21:00 Sodium 137.0 mmol/l (132-148) 11/22/16 21:00 Chloride 108.0 mmol/L (98-107) H 11/22/16 21:00 Glucose 96 mg/dl (75-110) 11/22/16 21:00 Lactate 0.9 mmol/L (0.7-2.1) 11/22/16 21:00 Sodium 135 mmol/L (132-148) 11/25/16 06:27 Potassium 3.9 mmol/L (3.6-5.2) 11/25/16 06:27 Chloride 96 mmol/L (98-107) L 11/25/16 06:27 Carbon Dioxide 27 mmol/L (22-30) 11/25/16 06:27 Anion Gap 16 (10-20) 11/25/16 06:27 BUN 10 mg/dL (9-20) 11/25/16 06:27 Creatinine 0.7 MG/DL (0.8-1.5) L 11/25/16 06:27 Est GFR ( Amer) > 60 11/25/16 06:27 Est GFR (Non-Af Amer) > 60 11/25/16 06:27 Random Glucose 101 mg/dL (75-110) 11/25/16 06:27 Calcium 8.6 mg/dl (8.6-10.4) 11/25/16 06:27 Phosphorus 5.4 mg/dL (2.5-4.5) H 11/25/16 06:27 Magnesium 1.9 mg/dL (1.6-2.3) 11/25/16 06:27 Total Bilirubin 0.2 mg/dL (0.2-1.3) 11/25/16 06:27 AST 10 U/L (17-59) L 11/25/16 06:27 ALT 11 U/L (21-72) L 11/25/16 06:27 Alkaline Phosphatase 68 U/L (38-126) 11/25/16 06:27 Total Creatine Kinase < 20 U/L (55-170) L 11/23/16 10:26 CK-MB (Mass) 0.34 ng/mL (0.0-3.38) 11/23/16 10:26 Troponin I < 0.0120 ng/mL (0.00-0.120) 11/22/16 20:42 Troponin I, Quant < 0.0120 ng/mL (0.00-0.120) 11/23/16 10:26 NT-Pro-B Natriuret Pep 91.4 pg/mL (0-900) 11/22/16 20:42 Total Protein 6.3 g/dL (6.3-8.3) 11/25/16 06:27 Albumin 3.3 g/dL (3.5-5.0) L 11/25/16 06:27 Globulin 3.0 gm/dL (2.2-3.9) 11/25/16 06:27 Albumin/Globulin Ratio 1.1 (1.0-2.1) 11/25/16 06:27 Triglycerides 150 mg/dL (0-149) H D 11/23/16 05:55 Cholesterol 175 mg/dL (0-199) 11/23/16 05:55 LDL Cholesterol Direct 136 mg/dL (0-129) H 11/23/16 05:55 HDL Cholesterol 21 mg/dL (30-70) L 11/23/16 05:55 Free T4 1.15 ng/dL (0.78-2.19) 11/23/16 06:00 TSH 3rd Generation 4.30 mIU/L (0.46-4.68) 11/23/16 05:55 Venous Blood Potassium 3.2 mmol/L (3.6-5.2) L 11/22/16 21:00 Urine Color Yellow (YELLOW) 11/23/16 05:04 Urine Clarity Hazy (Clear) 11/23/16 05:04 Urine pH 6.0 (5.0-8.0) 11/23/16 05:04 Ur Specific [place] 1.024 (1.003-1.030) 11/23/16 05:04 Urine Protein 2+ mg/dL (NEGATIVE) H 11/23/16 05:04 Urine Glucose (UA) Normal mg/dL (Normal) 11/23/16 05:04 Urine Ketones Negative mg/dL (NEGATIVE) 11/23/16 05:04 Urine Blood Negative (NEGATIVE) 11/23/16 05:04 Urine Nitrate Negative (NEGATIVE) 11/23/16 05:04 Urine Bilirubin Negative (NEGATIVE) 11/23/16 05:04 Urine Urobilinogen Normal mg/dL (0.2-1.0) 11/23/16 05:04 Ur Leukocyte Esterase Neg Renato/uL (Negative) 11/23/16 05:04 Urine WBC (Auto) 3 /hpf (0-5) 11/23/16 05:04 Urine RBC (Auto) 3 /hpf (0-3) 11/23/16 05:04 Ur Squamous Epith Cells < 1 /hpf (0-5) 11/23/16 05:04 Hyaline Casts 0-2 /lpf (0-2) 11/23/16 05:04 Blood Type O NEGATIVE 11/24/16 06:58 Antibody Screen Negative 11/24/16 06:58 Attending/Attestation - Attestation I have personally seen and examined this patient.: Yes I have fully participated in the care of the patient.: Yes I have reviewed all pertinent clinical information, including history, physical exam and plan: Yes Notes (Text): 11/26/16 17:30 Patient was seen and examined at bedside with the resident on the day of discharge Patient did not have any further complaints of chest pain We'll transfuse patient 1 unit of PRBC before discharge I agree with the above discharge note by the resident
== END 2016-11-25 17:57 | disposition home or self-care (01) | DRG 948 ==
LOC: SUPCPDRO 20:04 → C.ER 20:04 → C.9E 22:23 → C.9I 11-23 01:40 → OBSVTOIN 11-23 11:06
PROVIDERS: ADMIT Family Medicine; ATTEND Family Medicine
PROC: 30233N1 Transfusion of Nonautologous Red Blood Cells into Peripheral Vein, Percutaneous Approach (ICD-10-PCS; principal; 2016-11-25)
DX: G89.3 Neoplasm related pain (acute) (chronic) (principal); J90 Pleural effusion, not elsewhere classified; Z99.81 Dependence on supplemental oxygen; C34.12 Malignant neoplasm of upper lobe, left bronchus or lung; K52.1 Toxic gastroenteritis and colitis; H44.002 Unspecified purulent endophthalmitis, left eye; I82.729 Chronic embolism and thrombosis of deep veins of unspecified upper extremity; J44.9 Chronic obstructive pulmonary disease, unspecified; J98.11 Atelectasis; R07.89 Other chest pain; I10 Essential (primary) hypertension; J45.909 Unspecified asthma, uncomplicated; F17.210 Nicotine dependence, cigarettes, uncomplicated; Z88.0 Allergy status to penicillin; H54.41 Blindness, right eye, normal vision left eye; E87.6 Hypokalemia; I35.8 Other nonrheumatic aortic valve disorders; I69.398 Other sequelae of cerebral infarction; H54.42 Blindness, left eye, normal vision right eye; B95.61 Methicillin susceptible Staphylococcus aureus infection as the cause of diseases classified elsewhere; E78.5 Hyperlipidemia, unspecified; D64.9 Anemia, unspecified; R20.0 Anesthesia of skin; T45.1X5A Adverse effect of antineoplastic and immunosuppressive drugs, initial encounter

== ENCOUNTER 2017-07-09 12:50 | Emergency (ER) | payer OTHER ==
[2017-07-09 12:50] VITALS: BMI 25.0
[2017-07-09] MEDS ORDERED: Sodium Chloride 0.9% 1,000 ML IV ONE (13:26)
[2017-07-09] MEDS ORDERED: Sodium Chloride 0.9% 1,000 ML ONE (13:51)
[2017-07-09 13:57] LABS: BASO # 0.1 K/uL (0.0-0.2); BASO % 1.5 % (0.0-2.0); EOS # 0.1 K/uL (0.0-0.7); EOS % 2.1 % (0.0-4.0); HEMATOCRIT 40.3 % (35.0-51.0); LYMPH # 2.1 K/uL (1.0-4.3); MEAN CELL VOLUME 90.1 fL (80.0-94.0); MEAN CORPUSCULAR HEMOGLOBIN 31.2 pg (27.0-31.0); MEAN CORPUSCULAR HGB CONC 34.7 g/dL (33.0-37.0); MEAN PLATELET VOLUME 7.6 fL (7.2-11.7); MONO # 0.7 K/uL (0.0-0.8); MONO % 10.8 % (0.0-10.0); NRBC % 0.1 % (0.0-2.0); RED CELL DISTRIBUTION WIDTH 14.5 % (11.5-14.5); WHITE BLOOD COUNT 6.6 K/uL (4.8-10.8)
[2017-07-09 14:05] LABS: INR 1.1
[2017-07-09 14:07] LABS: CHLORIDE 103 mmol/L (98-107); POTASSIUM 3.6 mmol/L (3.6-5.2); SODIUM 135 mmol/L (132-148)
[2017-07-09 14:09] LABS: ALB/GLOB RATIO 1.5 (1.0-2.1); ALKALINE PHOSPHATASE 86 U/L (38-126); AST/SGOT 16 U/L (17-59); BILIRUBIN,TOTAL 0.8 mg/dL (0.2-1.3); CARBON DIOXIDE 22 mmol/L (22-30); GFR AFRICAN-AMERICAN > 60; TOTAL PROTEIN 7.4 g/dL (6.3-8.3)
[2017-07-09 14:10] LABS: ALT/SGPT 33 U/L (21-72); BLOOD UREA NITROGEN 9 mg/dL (9-20); CALCIUM 9.2 mg/dl (8.6-10.4); GLUCOSE,RANDOM 90 mg/dL (75-110)
[2017-07-09] MEDS ORDERED: DiphenhydrAMINE 50 mg/ml Inj IVP STA ×2 (14:14→17:11)
--- NOTE | 2017-07-09 14:14 | RAD ---
HISTORY: lung CA COMPARISON: 11/22/2016. FINDINGS: LUNGS: The lungs are hyperinflated and there are chronic changes in both lower lobes. There are fibrotic changes in the left upper lobe. There is extensive left apical pleural thickening. PLEURA: Small right pleural effusion. No large left pleural effusion. No pneumothorax CARDIOVASCULAR: Normal. OSSEOUS STRUCTURES: No significant abnormalities. VISUALIZED UPPER ABDOMEN: Normal. OTHER FINDINGS: None. IMPRESSION: Small right pleural effusion. COPD. Left apical pleural thick and fibrotic changes in both lower lobes.
[2017-07-09] MEDS ORDERED: DiphenhydrAMINE 50 mg/ml Inj ONE ×2 (14:23→17:16)
[2017-07-09] MEDS ORDERED: HYDROmorphone 1 mg/ml ISec IVP STA (14:46)
--- NOTE | 2017-07-09 14:52 | C.PDOC ---
History Of Present Illness 51 year old male, whose past medical history includes metastatic lung cancer, presents to the ED for evaluation of chest and back pain. Patient states he had been taking MS Contrin and oxycodone at home but is now inadequate. Patient notes he discontinued attending his chemotherapy sessions recently. Patient has been maintaining his weight and denies shortness of breath, nausea, vomiting, recent trauma, or history of smoking. Time Seen by Provider: 07/09/17 13:20 Chief Complaint (Nursing): Chest Pain History Per: Patient History/Exam Limitations: no limitations Onset/Duration Of Symptoms: Days Quality: "Pain" Associated Symptoms: denies: Nausea Additional History Per: Patient Past Medical History Reviewed: Historical Data, Nursing Documentation, Vital Signs Vital Signs: Last Vital Signs Temp 98.2 F 07/09/17 13:18 Pulse 88 07/09/17 17:25 Resp 18 07/09/17 17:25 BP 116/87 07/09/17 17:25 Pulse Ox 98 07/09/17 17:25 - Medical History PMH: Asthma, COPD, HTN, Malignancy (lung ca) Denies: Chronic Kidney Disease Surgical History: No Surg Hx - [facility] Procedures DRAINAGE OF RIGHT LOWER LOBE BRONCHUS, ENDO, DIAGN (09/13/16) EXCISION OF LEFT UPPER LOBE BRONCHUS, PERC APPROACH, DIAGN (07/05/16) EXCISION OF LEFT UPPER LUNG LOBE, ENDO, DIAGN (07/05/16) INSERTION OF ENDOTRACHEAL AIRWAY INTO TRACHEA, VIA OPENING (09/13/16) INSERTION OF INFUSION DEV INTO SUP VENA CAVA, PERC APPROACH (09/13/16) REMOVAL OF VAD FROM TRUNK SUBCU/FASCIA, OPEN APPROACH (09/13/16) RESPIRATORY VENTILATION, GREATER THAN 96 CONSECUTIVE HOURS (09/13/16) TRANSFUSE NONAUT PLATELETS IN PERIPH VEIN, PERC (09/13/16) TRANSFUSE NONAUT RED BLOOD CELLS IN PERIPH VEIN, PERC (11/23/16) ULTRASONOGRAPHY OF RIGHT AND LEFT HEART, TRANSESOPHAGEAL (09/13/16) Family History: States: Unknown Family Hx - Social History Hx Tobacco Use: Yes Hx Alcohol Use: No Hx Substance Use: No - Immunization History Hx Tetanus Toxoid Vaccination: No Hx Influenza Vaccination: No Hx Pneumococcal Vaccination: No Review Of Systems Constitutional: Negative for: Weight loss Cardiovascular: Positive for: Chest Pain Respiratory: Negative for: Shortness of Breath Gastrointestinal: Negative for: Nausea, Vomiting Musculoskeletal: Positive for: Back Pain Physical Exam - Physical Exam Appears: Non-toxic, Other (in moderate distress ) Skin: Normal Color, Warm, Dry Eye(s): bilateral: Normal Inspection Oral Mucosa: Moist Neck: Supple Chest: Symmetrical, No Deformity, No Tenderness Cardiovascular: Rhythm Regular Respiratory: Decreased Breath Sounds (right lung ), No Rales, No Rhonchi, No Wheezing Gastrointestinal/Abdominal: Soft, No Tenderness, No Guarding, No Rebound Extremity: Normal ROM, Capillary Refill (less than 2 seconds ), No Swelling Neurological/Psych: Oriented x3, Normal Speech, Normal Cognition Gait: Steady ED Course And Treatment - Laboratory Results Result Diagrams: 07/09/17 13:49 07/09/17 13:49 Lab Interpretation: Normal ECG: Interpreted By Me ECG Rhythm: Sinus Rhythm ECG Interpretation: Normal Rate From EC O2 Sat by Pulse Oximetry: 98 (on RA) Pulse Ox Interpretation: Normal - Radiology CXR: Interpreted by Me CXR Interpretation: Yes: No Acute Disease, Other (small R effusion) - Other Rad CXR X-Ray: Interpreted by Me, Viewed By Me, Read By Radiologist Interpretation: IMPRESSION: Small right pleural effusion. Progress Note: Bloodwork, UA, CXR, CT Angio Chest, EKG ordered and reviewed. Benadryl IVP, Dilaudid IVP, Solu-Medrol IV and IV Fluids administered. Returned from CT with IV contrast and generalized puriritis, Solumedrol 125, Benadryl IV, Pepcid IV w resolution of pruritis. Reevaluation Time: 18:20 Reassessment Condition: Improved Medical Decision Making Medical Decision Making: pt with h/o L apical Pancoast tumor s/p chemo/rads with increased pain in chest/ back was suspicious for lung mets but CTA of CAP shows no lung CA nor mets. Consider pleural pain due to post-radiation, incidentally may be better treated with steroids for pre-and post-treatment of IV contrast than narcotics. L eye palsy/blindness prob related to L Pancoast tumor minor adverse reaction to IV contrast, resolved [place]: Pain controlled @ home with adequate Oxycodone, MS Contin No susp of PE Pt prefers opt f/u w Dr. Minor-Onc this week and Dr. Gay Pulm, this week Disposition Doctor Will See Patient In The: Office Counseled Patient/Family Regarding: Studies Performed, Diagnosis - Disposition Disposition: HOME/ ROUTINE Disposition Time: 18:26 Condition: GOOD Forms: [facility] (Welsh) - Clinical Impression Clinical Impression: Chest discomfort - Scribe Statement The provider has reviewed the documentation as recorded by the Scribe (Tara Chandler) Provider Attestation: All medical record entries made by the Scribe were at my direction and personally dictated by me. I have reviewed the chart and agree that the record accurately reflects my personal performance of the history, physical exam, medical decision making, and the department course for this patient. I have also personally directed, reviewed, and agree with the discharge instructions and disposition.
[2017-07-09 15:02] VITALS: O2SAT 98
[2017-07-09 16:38] LABS: RBC URINE < 1 /hpf (0-3); URINE BILIRUBIN NEGATIVE (NEGATIVE); URINE BLOOD NEGATIVE (NEGATIVE); URINE COLOR Yellow (YELLOW); URINE GLUCOSE (UA) NORMAL (Normal); URINE KETONE NEGATIVE (NEGATIVE); URINE LEUKOCYTE ESTERASE NEG Leu/uL (Negative); URINE PROTEIN NEGATIVE (NEGATIVE); URINE UROBILINOGEN NORMAL mg/dL (0.2-1.0); WBC URINE < 1 /hpf (0-5)
[2017-07-09] MEDS ORDERED: Iodixanol 320 MG/ML 200 ML BOTTLE IV ONE (16:53)
--- NOTE | 2017-07-09 17:42 | CT ---
PROCEDURE: CT Angiography Chest, Abdomen and Pelvis with and without intravenous contrast HISTORY: CP/back pain - metastatic lung CA COMPARISON: 01/13/2017. TECHNIQUE: Contiguous axial images of the chest, abdomen and pelvis were obtained in the phase of aortic enhancement. A noncontrast enhanced CT of the chest was also obtained to evaluate for possible intramural thrombus. Coronal and sagittal reformats were generated. IV dose administered: 100 mL Visipaque Radiation dose: Total exam DLP = 967.22 mGy-cm. This CT exam was performed using one or more of the following dose reduction techniques: Automated exposure control, adjustment of the mA and/or kV according to patient size, and/or use of iterative reconstruction technique. FINDINGS: AORTA (CHEST AND ABDOMEN): This examination is of suboptimal diagnostic quality for evaluation of dissection due to missed bolus. The thoracic and abdominal aorta are unremarkable, without aneurysm, dissection or rupture. The celiac axis, superior mesenteric artery, inferior mesenteric artery and the renal arteries are widely patent. The pelvic arteries are unremarkable. LUNGS: Again seen is biapical pleural parenchymal scarring and paraseptal emphysema in the right upper lobe. There is also extensive scarring in the apical posterior segment of the left upper lobe. There is linear scarring in the right middle lobe and chronic subpleural atelectasis in the right lung base. More medially there is a round component which likely represents round atelectasis. There is also linear scarring in the left lung base. There is no evidence of suspicious pulmonary nodule, mass or consolidation. There are no endobronchial lesions. MEDIASTINUM: The heart is normal in size. No pericardial effusion. LYMPH NODES: No pathologic mediastinal or hilar adenopathy. PLEURA: No pneumothorax. No pleural fluid. BONES: Unremarkable. OTHER FINDINGS: None. CT ANGIOGRAPHY OF THE ABDOMEN AND PELVIS WITH CONTRAST: LIVER: There is mild hepatomegaly and diffuse fatty infiltration in the liver. No gross lesion or ductal dilatation. GALLBLADDER AND BILE DUCTS: No calcified gallstones. PANCREAS: The pancreas is normal in size with homogeneous enhancement. No gross lesion or ductal dilatation. SPLEEN: Spleen is normal in size. ADRENALS: No discrete nodule. KIDNEYS AND URETERS: Both kidneys are normal in size and there is homogeneous enhancement. No hydronephrosis. No solid mass. There are stable nonobstructing stones in the kidneys. VASCULATURE: There are atherosclerotic aortoiliac calcifications. No aortic aneurysm. STOMACH AND BOWEL: The stomach is distended and there is ingested material. The small bowel loops are normal in caliber. The ileocecal junction is normal. There is moderate amount of stool in the colon. There is mild left colonic diverticulosis without CT evidence for acute diverticulitis. APPENDIX: No inflammatory changes in the right lower quadrant. There is interval near complete resolution of presumable inflammatory soft tissue mass in the right lower quadrant. PERITONEUM: No free fluid. No free air. LYMPH NODES: No enlarged lymph nodes. BLADDER: Unremarkable. REPRODUCTIVE: The prostate gland is normal in size. BONES: No acute fracture. No destructive bony lesion OTHER FINDINGS: Status post repair of left inguinal hernia containing fibro fatty tissue P IMPRESSION: 1. Examination is of suboptimal diagnostic quality for evaluation of dissection due to missed bolus. 2. Fibrotic changes in the left upper lobe, paraseptal emphysema in the right upper lobe and presumable round atelectasis in the right lung base. No acute findings in the lungs. 3. Interval resolution of presumable inflammatory soft tissue in the right lower quadrant. 4. Mild hepatomegaly and fatty liver.
[2017-07-09 18:28] VITALS: BP 119/79; PULSE 92; RESP 20; TEMP 98.7
--- NOTE | 2017-07-10 21:37 | CARD ---
APPROVED REPORT EKG Measurement Heart [id number] <Conclusion> Normal sinus rhythm Normal ECG
== END 2017-07-09 18:37 | disposition home or self-care (01) ==
LOC: C.ER 12:50
DX: R07.9 Chest pain, unspecified (principal); I10 Essential (primary) hypertension; Z85.118 Personal history of other malignant neoplasm of bronchus and lung; F17.210 Nicotine dependence, cigarettes, uncomplicated
CPT/HCPCS: 71010; 71270; 74175; 80053; 80324; 80345; 80346; 80349; 80353; 80358; 80361; 81001; 83992; 84484; 85025; 85610; 85730; 87040; 93005; 96361; 96374; 96375; 96376; 99285; J1170; J1200; J2930; J7040; Q9966

== ENCOUNTER 2017-11-21 00:14 | Inpatient (IN) | payer OTHER ==
[2017-11-21 00:15] VITALS: BMI 25.0
[2017-11-21 00:39] LABS: BASO # 0.1 K/uL (0.0-0.2); BASO % 1.4 % (0.0-2.0); EOS % 0.3 % (0.0-4.0); HEMOGLOBIN 13.5 g/dL (12.0-18.0); LYMPH # 1.8 K/uL (1.0-4.3); LYMPH % 22.4 % (20.0-40.0); MEAN CELL VOLUME 89.6 fL (80.0-94.0); MEAN CORPUSCULAR HEMOGLOBIN 31.4 pg (27.0-31.0); MEAN CORPUSCULAR HGB CONC 35.1 g/dL (33.0-37.0); MEAN PLATELET VOLUME 7.5 fL (7.2-11.7); MONO # 0.7 K/uL (0.0-0.8); MONO % 8.4 % (0.0-10.0); NEUT # 5.3 K/uL (1.8-7.0); NEUT % 67.5 % (50.0-75.0); NRBC % 0.1 % (0.0-2.0); RBC 4.3 Mil/uL (4.40-5.90); RED CELL DISTRIBUTION WIDTH 14.3 % (11.5-14.5); WHITE BLOOD COUNT 7.9 K/uL (4.8-10.8)
[2017-11-21 00:49] LABS: PROTHROMBIN TIME 11.7 SECONDS (9.7-12.2)
[2017-11-21 00:55] LABS: ALB/GLOB RATIO 1.2 (1.0-2.1); ALBUMIN 4.3 g/dL (3.5-5.0); ALT/SGPT 8 U/L (21-72); AST/SGOT 19 U/L (17-59); BLOOD UREA NITROGEN 10 mg/dL (9-20); CALCIUM 9.9 mg/dl (8.6-10.4); GFR AFRICAN-AMERICAN > 60; GFR NON-AFRICAN AMERICAN > 60; HDL CHOLESTEROL 35 mg/dL (30-70)
--- NOTE | 2017-11-21 01:02 | C.PDOC ---
History Of Present Illness 52 year old male with a Hx of stage 3 lung cancer on chemotherapy and radiation , diagnosed in the fall of 2015, was in the company of his significant other when she noted an acute onset of slurred speech and not moving his left side. On arrival, patient is severely dysarthric unable to offer Hx. Patient takes oxycodon related to his lung cancer and has been noted to have a poor appetite throughout the day. Patient has not had any recent fever, chills, or cough. Chief Complaint (Nursing): Altered Mental Status History Per: Family History/Exam Limitations: Clinical Condition Onset/Duration Of Symptoms: Hrs Onset Of Symptoms: <3 Hours Character Of Deficits: Left: Weakness, Face: Weakness, Arm: Weakness, Leg: Weakness Speech Is: Slurred Recent travel outside of the [place]: No Past Medical History Reviewed: Historical Data, Nursing Documentation, Vital Signs Vital Signs: Last Vital Signs Temp 98.6 F 11/21/17 04:00 Pulse 83 11/21/17 05:00 Resp 24 11/21/17 05:00 BP 108/78 11/21/17 04:30 Pulse Ox 94 L 11/21/17 05:00 - Medical History PMH: Asthma, COPD, HTN, Malignancy (lung ca) - [facility] Procedures DRAINAGE OF RIGHT LOWER LOBE BRONCHUS, ENDO, DIAGN (09/13/16) EXCISION OF LEFT UPPER LOBE BRONCHUS, PERC APPROACH, DIAGN (07/05/16) EXCISION OF LEFT UPPER LUNG LOBE, ENDO, DIAGN (07/05/16) INSERTION OF ENDOTRACHEAL AIRWAY INTO TRACHEA, VIA OPENING (09/13/16) INSERTION OF INFUSION DEV INTO SUP VENA CAVA, PERC APPROACH (09/13/16) REMOVAL OF VAD FROM TRUNK SUBCU/FASCIA, OPEN APPROACH (09/13/16) RESPIRATORY VENTILATION, GREATER THAN 96 CONSECUTIVE HOURS (09/13/16) TRANSFUSE NONAUT PLATELETS IN PERIPH VEIN, PERC (09/13/16) TRANSFUSE NONAUT RED BLOOD CELLS IN PERIPH VEIN, PERC (11/23/16) ULTRASONOGRAPHY OF RIGHT AND LEFT HEART, TRANSESOPHAGEAL (09/13/16) Family History: States: Unknown Family Hx - Social History Hx Tobacco Use: Yes Hx Alcohol Use: No Hx Substance Use: No - Immunization History Hx Tetanus Toxoid Vaccination: No Hx Influenza Vaccination: No Hx Pneumococcal Vaccination: No Review Of Systems Except As Marked, All Systems Reviewed And Found Negative. Constitutional: Negative for: Fever, Chills Cardiovascular: Negative for: Chest Pain, Palpitations Respiratory: Negative for: Cough Neurological: Positive for: Weakness, Change in Speech Physical Exam - Physical Exam Appears: Other (Lethargic but arousable to tactile stimuli) Skin: Normal Color, Warm, Dry Head: Atraumatic, Normacephalic Eye(s): bilateral: Normal Inspection Ear(s): Bilateral: Normal Nose: Normal Oral Mucosa: Moist Neck: Normal, Supple Chest: Symmetrical, No Tenderness Cardiovascular: Rhythm Regular Respiratory: Normal Breath Sounds, No Rales, No Rhonchi, No Wheezing Gastrointestinal/Abdominal: Soft, No Tenderness Extremity: Other (Moves right side on command, only 3/5 strength to left upper extremity, no spontaneous movement of left lower extremity.) Neurological/Psych: Other (Left facial droop that spares the forehead. Moderate to severe dysarthric speech.) ED Course And Treatment - Laboratory Results Result Diagrams: 11/21/17 00:36 11/21/17 00:36 ECG: Interpreted By Me ECG Rhythm: Sinus Rhythm ECG Interpretation: Normal, No Acute Changes Interpretation Of ECG: NSR at96 BPM O2 Sat by Pulse Oximetry: 95 (room air) Pulse Ox Interpretation: Normal NIHSS Stroke Scale - How Severe is the Stoke Level of Consciousness: 1=Drowsy LOC to Questions: 0=Both comments correct LOC to commands: 0=Obeys both correctly Best Gaze: 0=Normal Visual: 0=No visual loss Facial: 2=Partial (lower face paralysis) Motor Arm - Left: 3=No effort against gravity (falls immediately) Motor Arm - Right: 0=No drift Motor Leg - Left: 3=No effort against gravity (falls immediately) Motor Leg - Right: 0=No drift Limb Ataxia: 1=Present Upper or Lower Sensory: 1=Mild to moderate loss Best Language: 1=Mild to moderate aphasia Dysarthia: 1=Mild to moderate slurring Extinction & Inattention (Neglect): 1=Partial neglect (mild isabel-attention) Score: 14 Severity Of Stroke: 5-15= Moderate Stroke Medical Decision Making Medical Decision Making: Impression is left hemiparesis, consider acute CVA vs thang's paralysis vs metastasis. Acute stroke protocol initiated, CT and CTA. Impression after CT is acute onset left hemiparesis, differentials include acute ischemic stroke vs brain metastasis vs post seizure thang's paralysis vs TIA. Given patient's underlying malignancy patient is high risk for thrombolytic therapy, must rule out brain metastasis to determine further management. Patient is severely allergic to iodine based dyes, will admits to neuro ICU for frequent neuro checks and MRI of the brain JAD. Dr. Mahan does not recommend seizure prophylactics at this time. Disposition - Disposition Disposition: HOSPITALIZED Disposition Time: 06:55 Condition: SERIOUS - Clinical Impression Clinical Impression: Ischemic stroke, Thang's paralysis - Scribe Statement The provider has reviewed the documentation as recorded by the Scribestrella Mena All medical record entries made by the Ellisibestrella were at my direction and personally dictated by me. I have reviewed the chart and agree that the record accurately reflects my personal performance of the history, physical exam, medical decision making, and the department course for this patient. I have also personally directed, reviewed, and agree with the discharge instructions and disposition.
--- NOTE | 2017-11-21 01:05 | CP.PCM.CON ---
History of Present Illness - History of Present Illness History of Present Illness: Tele-Stroke Consultation Note: This is a tele-health visit, and the patient is being seen through bi-directional video conference with the [facility] system. Video IN: 12:48 AM; Video OUT: 01:01 AM Mr. Agee is a 52-year-old man with a past medical history of stage 3 lung cancer, with mets, but the family is uncertain whether or not he has brain mets , who was found to have slurred speech, confusion and difficulty with standing. The family attempted to help him stand about two hours ago, but he lost consciousness and he developed shaking movements of the right side. Subsequently, the patient was brought to the ED, where he continued to demonstrate slurred speech, left facial droop and left side weakness. CT scan of the head did not show any acute changes. He was not a good candidate for IV tPA due to seizure-like activity, and being a high risk for bleeding with the history of metastatic lung cancer. He has a severe allergy to iodine contrast and could not have a CTA. Review of Systems - Review of Systems All systems: reviewed and no additional remarkable complaints except Past Patient History - Infectious Disease Hx of Infectious Diseases: None - Past Medical History & Family History Past Medical History?: Yes - Past Social History Smoking Status: Heavy Smoker > 10 Cigarettes Daily - CARDIAC Hx Hypertension: Yes - PULMONARY Hx Asthma: Yes Hx Chronic Obstructive Pulmonary Disease (COPD): Yes Hx Lung Cancer: Yes - NEUROLOGICAL Hx Neurological Disorder: Yes HX Cerebrovascular Accident: Yes (left eye blindness) Other/Comment: left eye blindness post cva - HEENT Hx HEENT Problems: Yes Hx Blind: Yes (left eye blind) - RENAL Hx Chronic Kidney Disease: No - ENDOCRINE/METABOLIC Hx Endocrine Disorders: No - HEMATOLOGICAL/ONCOLOGICAL Hx Blood Disorders: Yes Hx Cancer: Yes (LUNG CANCER) - INTEGUMENTARY Hx Dermatological Problems: No - MUSCULOSKELETAL/RHEUMATOLOGICAL Hx Musculoskeletal Disorders: Yes Hx Falls: Yes Other/Comment: HX: BILATERAL HERNIA(S). HX: LEFT ROTATOR CUFF TEAR - GASTROINTESTINAL Hx Gastrointestinal Disorders: No - GENITOURINARY/GYNECOLOGICAL Hx Genitourinary Disorders: No - PSYCHIATRIC Hx Psychophysiologic Disorder: No Hx Substance Use: No - SURGICAL HISTORY Hx Surgeries: Yes Hx Herniorrhaphy: Yes (BILATERAL HERNIA REPAIR) Hx Musculoskeletal Surgery: Yes (LEFT ROTATOR CUFF) Other/Comment: yari catheter removed - ANESTHESIA Hx Anesthesia: Yes Hx Anesthesia Reactions: No Hx Malignant Hyperthermia: No Meds Allergies/Adverse Reactions: Allergies Allergy/AdvReac Type Severity Reaction Status Date / Time Penicillins Allergy SWELLING Verified 11/21/17 00:26 strawberry Allergy SWELLING Verified 11/21/17 00:26 all seafoods Allergy SWELLING Uncoded 11/21/17 00:26 iodinated IV dye Allergy SWELLING Uncoded 11/21/17 00:26 Physical Exam - Neurological Exam Neurological exam: Alert, CN II-XII Intact, Oriented x3 Additional comments: Left side upper extremity strength was 2/5, and lower extremity on the left was 1/5. He had decreased sensation on the left side as well and a left facial droop. Right side strength was preserved as was sensation. His speech was dysarthric, not aphasic. NIHSS = 10. Results - Vital Signs Recent Vital Signs: Last Vital Signs Temp 98.3 F 11/21/17 00:20 Pulse 98 H 11/21/17 00:20 Resp 18 11/21/17 00:20 BP 136/96 H 11/21/17 00:20 Pulse Ox 95 11/21/17 00:20 - Labs Result Diagrams: 11/21/17 00:36 11/21/17 00:36 Labs: Laboratory Results - last 24 hr 11/21/17 11/21/17 11/21/17 00:36 00:36 00:36 WBC 7.9 RBC 4.30 L Hgb 13.5 Hct 38.5 MCV 89.6 MCH 31.4 H MCHC 35.1 RDW 14.3 Plt Count 254 MPV 7.5 Neut % (Auto) 67.5 Lymph % (Auto) 22.4 [place] % (Auto) 8.4 Eos % (Auto) 0.3 Baso % (Auto) 1.4 Neut # (Auto) 5.3 Lymph # (Auto) 1.8 [place] # (Auto) 0.7 Eos # (Auto) 0.0 Baso # (Auto) 0.1 PT 11.7 INR 1.0 APTT 36 H Sodium 139 Potassium 3.8 Chloride 103 Carbon Dioxide 24 Anion Gap 17 BUN 10 Creatinine 0.7 L Est GFR ( Amer) > 60 Est GFR (Non-Af Amer) > 60 Random Glucose 97 Calcium 9.9 Total Bilirubin 0.5 AST 19 ALT 8 L D Alkaline Phosphatase 77 Total Creatine Kinase 50 L Total Protein 7.9 Albumin 4.3 Globulin 3.6 Albumin/Globulin Ratio 1.2 Triglycerides 239 H D Cholesterol 257 H HDL Cholesterol 35 Assessment & Plan (1) Seizure Assessment and Plan: The history of loss of consciousness and abnormal jerky movements in a patient with metastatic lung cancer is concerning for brain mets causing seizure. I recommend an MRI of the brain with and without contrast for further evaluation as well as an EEG awake and drowsy for 1 hour. We will hold off on starting anti -epileptic medication for now since it is not 100% certain that he had a seizure. However, if there are any witnessed seizures, then we will certainly start Keppra 1000 mg loading dose followed by 500 mg Q12. Status: Acute Priority: High (2) Ischemic stroke Assessment and Plan: The acute onset of left side weakness is concerning for acute ischemic stroke. Symptoms started about two hours ago, but he is not a good candidate for IV tPA due to seizure-like activity and high risk for bleeding due to metastatic cancer. I recommend the followin. Telemetry and Q1 hour neuro-checks (may need ICU admission for close observation) 2. MRI brain with and without contrast, MRA head/neck without contrast 3. Echocardiogram with bubble study 4. Load with aspirin 300 mg FL 5. Lipid panel, HbA1c, B12, folate, hypercoagulable work-up. 6. PT/OT eval and treat 7. DVT Px with SCD 8. Fluids with NS at 100 mL/hr 9. Permissive HTN (only treat BP > 220/110 mm Hg for the next 24-36 hours) 10. Case management consult Thank you. Status: Acute
[2017-11-21 01:06] LABS: B-TYPE NATRIURETIC PEPTIDE 22.6 pg/mL (0-900); LDL CHOLESTEROL 188 mg/dL (0-129)
[2017-11-21 01:16] LABS: CK-MB < 0.22 ng/mL (0.0-3.38)
[2017-11-21] MEDS ORDERED: Aspirin 325 mg EC Tablets PO STA (02:16)
--- NOTE | 2017-11-21 02:17 | CP.PCM.CON ---
History of Present Illness - History of Present Illness History of Present Illness: 52 year old male with a Hx of COPD,stage III lung cancer diagnosed in the fall of 2015 received chemotherapy and radiation until 09/2016 , patient fell almost hit his head (prevented by bystander) ,eyes rolled up,lost conciousness ,had acute onset of slurred speech and was not moving his left side. On arrival in ER patient was severely dysarthric unable to offer Hx. Patient takes oxycodon related to his lung cancer and has been noted to have a poor appetite throughout the day. Patient has not had any recent fever, chills, or cough. In ER patients speech improved and was able to give history,had argument with son,and threatened to sign AMA.He was given ativan in ER CT scan of the head did not show any acute changes at home patient is minimally ambulatory,continues to smoke.For the past 1 year he has a physician who visits him at home and prescribes medications and does blood tests .He does not follow up with an Oncologist Review of Systems - Review of Systems Systems not reviewed;Unavailable: Uncooperative - Constitutional Constitutional: absent: Fever, Frequent Falls Additional comments: poor apetite x 1 day - EENT Eyes: Loss of Vision (loss of vision left eye about 1 year) Nose/Mouth/Throat: absent: Hoarsness, Tongue Swelling - Cardiovascular Cardiovascular: absent: Chest Pain at Rest, Leg Edema, Palpitations - Respiratory Respiratory: Cough (chronic cough), Dyspnea - Gastrointestinal Gastrointestinal: absent: Abdominal Pain, Change in Bowel Habits - Genitourinary Genitourinary: absent: Change in Urinary Stream - Musculoskeletal Musculoskeletal: absent: Deformity - Integumentary Integumentary: absent: Rash, Wounds - Neurological Neurological: Focal Weakness, Weakness. absent: Dizziness - Endocrine Endocrine: absent: Polyuria - Hematologic/Lymphatic Hematologic: absent: Easy Bleeding Past Patient History - Infectious Disease Hx of Infectious Diseases: None - Past Medical History & Family History Past Medical History?: Yes - Past Social History Smoking Status: Heavy Smoker > 10 Cigarettes Daily Home Situation {Lives}: With Family - CARDIAC Hx Hypertension: Yes - PULMONARY Hx Asthma: Yes Hx Chronic Obstructive Pulmonary Disease (COPD): Yes - NEUROLOGICAL Hx Neurological Disorder: Yes HX Cerebrovascular Accident: Yes (left eye blindness) Other/Comment: left eye blindness post cva - HEENT Hx HEENT Problems: Yes Hx Blind: Yes (left eye blind) - RENAL Hx Chronic Kidney Disease: No - ENDOCRINE/METABOLIC Hx Endocrine Disorders: No - HEMATOLOGICAL/ONCOLOGICAL Hx Blood Disorders: Yes Hx Cancer: Yes (LUNG CANCER) - INTEGUMENTARY Hx Dermatological Problems: No - MUSCULOSKELETAL/RHEUMATOLOGICAL Hx Musculoskeletal Disorders: Yes Hx Falls: Yes Other/Comment: HX: BILATERAL HERNIA(S). HX: LEFT ROTATOR CUFF TEAR - GASTROINTESTINAL Hx Gastrointestinal Disorders: No - GENITOURINARY/GYNECOLOGICAL Hx Genitourinary Disorders: No - PSYCHIATRIC Hx Substance Use: No - SURGICAL HISTORY Hx Surgeries: Yes Hx Herniorrhaphy: Yes (BILATERAL HERNIA REPAIR) Hx Musculoskeletal Surgery: Yes (LEFT ROTATOR CUFF) Other/Comment: yari catheter removed - ANESTHESIA Hx Anesthesia: Yes Hx Anesthesia Reactions: No Hx Malignant Hyperthermia: No Meds Allergies/Adverse Reactions: Allergies Allergy/AdvReac Type Severity Reaction Status Date / Time Penicillins Allergy SWELLING Verified 11/21/17 00:26 strawberry Allergy SWELLING Verified 11/21/17 00:26 all seafoods Allergy SWELLING Uncoded 11/21/17 00:26 iodinated IV dye Allergy SWELLING Uncoded 11/21/17 00:26 - Medications Medications: Current Medications Aspirin (Aspirin Supp) 300 mg [place] DAILY MARKUS Physical Exam - Constitutional Appears: No Acute Distress - Head Exam Head Exam: ATRAUMATIC, NORMAL INSPECTION, NORMOCEPHALIC - Eye Exam Eye Exam: absent: Scleral icterus Pupil Exam: PERRL Additional comments: loss of vision left eye - ENT Exam ENT Exam: Mucous Membranes Moist - Neck Exam Neck exam: Positive for: Normal Inspection - Respiratory Exam Respiratory Exam: Clear to Auscultation Bilateral. absent: Rhonchi, Wheezes - Cardiovascular Exam Cardiovascular Exam: REGULAR RHYTHM. absent: JVD - GI/Abdominal Exam GI & Abdominal Exam: Normal Bowel Sounds, Soft. absent: Tenderness - Extremities Exam Extremities exam: Positive for: normal inspection, pedal pulses present. Negative for: calf tenderness, pedal edema - Back Exam Back exam: absent: rash noted - Neurological Exam Neurological exam: Alert, Oriented x3 Additional comments: left facial droop left upper and lower extremity weakness LUE 2/5 LLE1/5' - Skin Skin Exam: Normal Color Results - Vital Signs Recent Vital Signs: Last Vital Signs Temp 98.3 F 11/21/17 00:20 Pulse 98 H 11/21/17 00:20 Resp 18 11/21/17 00:20 BP 136/96 H 11/21/17 00:20 Pulse Ox 95 11/21/17 01:40 - Labs Result Diagrams: 11/21/17 00:36 11/21/17 00:36 Labs: Laboratory Results - last 24 hr 11/21/17 11/21/17 11/21/17 00:36 00:36 00:36 WBC 7.9 RBC 4.30 L Hgb 13.5 Hct 38.5 MCV 89.6 MCH 31.4 H MCHC 35.1 RDW 14.3 Plt Count 254 MPV 7.5 Neut % (Auto) 67.5 Lymph % (Auto) 22.4 [place] % (Auto) 8.4 Eos % (Auto) 0.3 Baso % (Auto) 1.4 Neut # (Auto) 5.3 Lymph # (Auto) 1.8 [place] # (Auto) 0.7 Eos # (Auto) 0.0 Baso # (Auto) 0.1 PT 11.7 INR 1.0 APTT 36 H Sodium 139 Potassium 3.8 Chloride 103 Carbon Dioxide 24 Anion Gap 17 BUN 10 Creatinine 0.7 L Est GFR ( Amer) > 60 Est GFR (Non-Af Amer) > 60 Random Glucose 97 Calcium 9.9 Total Bilirubin 0.5 AST 19 ALT 8 L D Alkaline Phosphatase 77 Total Creatine Kinase 50 L CK-MB (Mass) < 0.22 Troponin I < 0.0120 NT-Pro-B Natriuret Pep 22.6 Total Protein 7.9 Albumin 4.3 Globulin 3.6 Albumin/Globulin Ratio 1.2 Triglycerides 239 H D Cholesterol 257 H LDL Cholesterol Direct 188 H HDL Cholesterol 35 Blood Type Antibody Screen 11/21/17 00:38 WBC RBC Hgb Hct MCV MCH MCHC RDW Plt Count MPV Neut % (Auto) Lymph % (Auto) [place] % (Auto) Eos % (Auto) Baso % (Auto) Neut # (Auto) Lymph # (Auto) [place] # (Auto) Eos # (Auto) Baso # (Auto) PT INR APTT Sodium Potassium Chloride Carbon Dioxide Anion Gap BUN Creatinine Est GFR ( Amer) Est GFR (Non-Af Amer) Random Glucose Calcium Total Bilirubin AST ALT Alkaline Phosphatase Total Creatine Kinase CK-MB (Mass) Troponin I NT-Pro-B Natriuret Pep Total Protein Albumin Globulin Albumin/Globulin Ratio Triglycerides Cholesterol LDL Cholesterol Direct HDL Cholesterol Blood Type O NEGATIVE Antibody Screen Negative - EKG Data EKG Interpreted by: Myself Rate: Normal - Imaging and Cardiology Chest x-ray Additional comment: pending Assessment & Plan - Assessment and Plan (Free Text) Assessment: 1.Acute CVA vs Siezure No acute changes on CT scan.Received aspirin in ER MRI,ECHO,labs Neurocheck 2.Hyperlipidemia NPO until swallowing eval start meds when patient is able to tolerate oral intake 3.Stage III lung Ca not being f/u by Oncology
[2017-11-21] MEDS ORDERED: Sodium Chloride 0.9% 1,000 ML IV SCH (02:45)
--- NOTE | 2017-11-21 03:53 | CP.PCM.HP ---
<BrightChristina ZhangRoss - Last Filed: 11/21/17 03:45> History of Present Illness - History of Present Illness History of Present Illness: Code: Full Code HPI: 52 year old male with past medical history of stage III lung cancer ( diagnosed in 2016), COPD, and left eye blindness, presents to the ER for change in mental status. Per patient's daughter in law the patient was unresponsive, his eyes rolled back, lost consciousness and fell but she was able to catch him. She states she then called the ambulance. She also states his speech is slurred and he is not able to walk. The patient states the last thing he remembers was laying in his bed. The patient states he now has weakness in his left arm and legs. He states he is blind in his left eye due to an infection from last year of his portacath. Patient denies chest pain, palpitations, shortness of breath, nausea or vomiting. Per patient's daughter in law this is the first time the patient has become unresponsive. PMD: Dr. Watson Oncologist: Dr. Minor Past Medical History: stage III lung cancer (diagnosed in 2016), COPD, and left eye blindness; Patient states after the infection of his portacath he has not wanted it to be replaced and he does not wish to continue his cancer treatment. Past surgical History: Protacath placement 2016; Portacath removal 2017 Allergies: Penicillin, seafood, iodine Social History: lives with son and daughter in law; current smoker for 40+ years about 1 pack per day Present on Admission - Present on Admission Any Indicators Present on Admission: No Review of Systems - Review of Systems Systems not reviewed;Unavailable: Uncooperative - Musculoskeletal Musculoskeletal: Muscle Weakness - Neurological Neurological: Weakness Past Patient History - Infectious Disease Hx of Infectious Diseases: None - Past Medical History & Family History Past Medical History?: Yes - Past Social History Smoking Status: Heavy Smoker > 10 Cigarettes Daily Home Situation {Lives}: With Family - CARDIAC Hx Hypertension: Yes - PULMONARY Hx Asthma: Yes Hx Chronic Obstructive Pulmonary Disease (COPD): Yes - NEUROLOGICAL Hx Neurological Disorder: Yes HX Cerebrovascular Accident: Yes (left eye blindness) Other/Comment: left eye blindness post cva - HEENT Hx HEENT Problems: Yes Hx Blind: Yes (left eye blind) - RENAL Hx Chronic Kidney Disease: No - ENDOCRINE/METABOLIC Hx Endocrine Disorders: No - HEMATOLOGICAL/ONCOLOGICAL Hx Blood Disorders: Yes Hx Cancer: Yes (LUNG CANCER) - INTEGUMENTARY Hx Dermatological Problems: No - MUSCULOSKELETAL/RHEUMATOLOGICAL Hx Musculoskeletal Disorders: Yes Hx Falls: Yes Other/Comment: HX: BILATERAL HERNIA(S). HX: LEFT ROTATOR CUFF TEAR - GASTROINTESTINAL Hx Gastrointestinal Disorders: No - GENITOURINARY/GYNECOLOGICAL Hx Genitourinary Disorders: No - PSYCHIATRIC Hx Substance Use: No - SURGICAL HISTORY Hx Surgeries: Yes Hx Herniorrhaphy: Yes (BILATERAL HERNIA REPAIR) Hx Musculoskeletal Surgery: Yes (LEFT ROTATOR CUFF) Other/Comment: yari catheter removed - ANESTHESIA Hx Anesthesia: Yes Hx Anesthesia Reactions: No Hx Malignant Hyperthermia: No Meds Allergies/Adverse Reactions: Allergies Allergy/AdvReac Type Severity Reaction Status Date / Time Penicillins Allergy SWELLING Verified 11/21/17 00:26 strawberry Allergy SWELLING Verified 11/21/17 00:26 all seafoods Allergy SWELLING Uncoded 11/21/17 00:26 iodinated IV dye Allergy SWELLING Uncoded 11/21/17 00:26 Physical Exam - Constitutional Appears: Non-toxic, Agitated - Head Exam Head Exam: ATRAUMATIC, NORMAL INSPECTION - Eye Exam Eye Exam: EOMI, PERRL Pupil Exam: NORMAL ACCOMODATION Additional comments: Left eye droop - ENT Exam ENT Exam: Mucous Membranes Moist - Respiratory Exam Respiratory Exam: Clear to Auscultation Bilateral, NORMAL BREATHING PATTERN - Cardiovascular Exam Cardiovascular Exam: REGULAR RHYTHM, +S1, +S2 - GI/Abdominal Exam GI & Abdominal Exam: Normal Bowel Sounds, Soft. absent: Tenderness - Extremities Exam Extremities exam: Negative for: pedal edema, tenderness - Neurological Exam Neurological exam: Alert, CN II-XII Intact, Oriented x3 - Expanded Neurological Exam Expanded Patient oriented to: person, place, time Speech: Slurred Speech Cranial nerves: EOM's Intact: Normal, Facial Palsey w/Forehead Movement: Normal , Facial Palsey w/o Forehead Movement: Normal, Facial Sensation: Normal Sensory exam: Lower Extremity Light Touch: Abnormal Left, Upper Extremity Light Touch: Abnormal Left Neuro motor strength exam: Left Upper Extremity: 2/1, Right Upper Extremity: 5, Left Lower Extremity: 2/1, Right Lower Extremity: 5 Coma Scale Eye Opening: SPONTANEOUS Coma Scale Motor Response: OBEYS COMMANDS - Psychiatric Exam Psychiatric exam: Agitated - Skin Skin Exam: Dry, Intact Results - Vital Signs Recent Vital Signs: Last Vital Signs Temp 97.9 F 11/21/17 02:20 Pulse 102 H 11/21/17 02:20 Resp 16 11/21/17 02:20 BP 127/78 11/21/17 02:20 Pulse Ox 96 11/21/17 02:20 - Labs Result Diagrams: 11/21/17 00:36 11/21/17 00:36 Labs: Laboratory Results - last 24 hr 11/21/17 11/21/17 11/21/17 00:36 00:36 00:36 WBC 7.9 RBC 4.30 L Hgb 13.5 Hct 38.5 MCV 89.6 MCH 31.4 H MCHC 35.1 RDW 14.3 Plt Count 254 MPV 7.5 Neut % (Auto) 67.5 Lymph % (Auto) 22.4 Alcorn % (Auto) 8.4 Eos % (Auto) 0.3 Baso % (Auto) 1.4 Neut # (Auto) 5.3 Lymph # (Auto) 1.8 Alcorn # (Auto) 0.7 Eos # (Auto) 0.0 Baso # (Auto) 0.1 PT 11.7 INR 1.0 APTT 36 H Sodium 139 Potassium 3.8 Chloride 103 Carbon Dioxide 24 Anion Gap 17 BUN 10 Creatinine 0.7 L Est GFR ( Amer) > 60 Est GFR (Non-Af Amer) > 60 Random Glucose 97 Calcium 9.9 Total Bilirubin 0.5 AST 19 ALT 8 L D Alkaline Phosphatase 77 Total Creatine Kinase 50 L CK-MB (Mass) < 0.22 Troponin I < 0.0120 NT-Pro-B Natriuret Pep 22.6 Total Protein 7.9 Albumin 4.3 Globulin 3.6 Albumin/Globulin Ratio 1.2 Triglycerides 239 H D Cholesterol 257 H LDL Cholesterol Direct 188 H HDL Cholesterol 35 Blood Type Antibody Screen 11/21/17 00:38 WBC RBC Hgb Hct MCV MCH MCHC RDW Plt Count MPV Neut % (Auto) Lymph % (Auto) Alcorn % (Auto) Eos % (Auto) Baso % (Auto) Neut # (Auto) Lymph # (Auto) Alcorn # (Auto) Eos # (Auto) Baso # (Auto) PT INR APTT Sodium Potassium Chloride Carbon Dioxide Anion Gap BUN Creatinine Est GFR ( Amer) Est GFR (Non-Af Amer) Random Glucose Calcium Total Bilirubin AST ALT Alkaline Phosphatase Total Creatine Kinase CK-MB (Mass) Troponin I NT-Pro-B Natriuret Pep Total Protein Albumin Globulin Albumin/Globulin Ratio Triglycerides Cholesterol LDL Cholesterol Direct HDL Cholesterol Blood Type O NEGATIVE Antibody Screen Negative Assessment & Plan - Assessment and Plan (Free Text) Assessment: During the examination in the ER patient became agitated and wanted to leave the ER. Patient began to argue with son and daughter in law. Patient was given Ativan 1mg in the ER. 1.Acute CVA vs Seizure Patient admitted to ICU Code stroke was called in the ER No acute changes on CT scan. - f/u official head CT report Received aspirin in ER f/u MRA f/u brain with and without contrast f/u ECHO Neurocheck 2.Stage III lung Ca not being f/u by Oncology patient states he does not was therapy <Aston Almonte - Last Filed: 11/21/17 06:25> Results - Vital Signs Recent Vital Signs: Last Vital Signs Temp 98.6 F 11/21/17 04:00 Pulse 83 11/21/17 05:00 Resp 24 11/21/17 05:00 BP 108/78 11/21/17 04:30 Pulse Ox 94 L 11/21/17 05:00 - Labs Result Diagrams: 11/21/17 00:36 11/21/17 00:36 Labs: Laboratory Results - last 24 hr 11/21/17 11/21/17 11/21/17 00:36 00:36 00:36 WBC 7.9 RBC 4.30 L Hgb 13.5 Hct 38.5 MCV 89.6 MCH 31.4 H MCHC 35.1 RDW 14.3 Plt Count 254 MPV 7.5 Neut % (Auto) 67.5 Lymph % (Auto) 22.4 Alcorn % (Auto) 8.4 Eos % (Auto) 0.3 Baso % (Auto) 1.4 Neut # (Auto) 5.3 Lymph # (Auto) 1.8 Alcorn # (Auto) 0.7 Eos # (Auto) 0.0 Baso # (Auto) 0.1 PT 11.7 INR 1.0 APTT 36 H Sodium 139 Potassium 3.8 Chloride 103 Carbon Dioxide 24 Anion Gap 17 BUN 10 Creatinine 0.7 L Est GFR ( Amer) > 60 Est GFR (Non-Af Amer) > 60 POC Glucose (mg/dL) Random Glucose 97 Calcium 9.9 Total Bilirubin 0.5 AST 19 ALT 8 L D Alkaline Phosphatase 77 Total Creatine Kinase 50 L CK-MB (Mass) < 0.22 Troponin I < 0.0120 NT-Pro-B Natriuret Pep 22.6 Total Protein 7.9 Albumin 4.3 Globulin 3.6 Albumin/Globulin Ratio 1.2 Triglycerides 239 H D Cholesterol 257 H LDL Cholesterol Direct 188 H HDL Cholesterol 35 Blood Type Antibody Screen 11/21/17 11/21/17 00:38 05:34 WBC RBC Hgb Hct MCV MCH MCHC RDW Plt Count MPV Neut % (Auto) Lymph % (Auto) Alcorn % (Auto) Eos % (Auto) Baso % (Auto) Neut # (Auto) Lymph # (Auto) Alcorn # (Auto) Eos # (Auto) Baso # (Auto) PT INR APTT Sodium Potassium Chloride Carbon Dioxide Anion Gap BUN Creatinine Est GFR ( Amer) Est GFR (Non-Af Amer) POC Glucose (mg/dL) 99 Random Glucose Calcium Total Bilirubin AST ALT Alkaline Phosphatase Total Creatine Kinase CK-MB (Mass) Troponin I NT-Pro-B Natriuret Pep Total Protein Albumin Globulin Albumin/Globulin Ratio Triglycerides Cholesterol LDL Cholesterol Direct HDL Cholesterol Blood Type O NEGATIVE Antibody Screen Negative Assessment & Plan - Date & Time Date: 11/21/17 (I have seen and examined the patient. I agree with the findings and plan of care as documented by Dr. Bright. Code stroke called in ED. History of Lung CA. Possible brain mets. Check MRI brain in AM. Admit to ICU for close monitoring. Monitor for acute changes. Seizure precautions.) Time: 06:24 Attending/Attestation - Attestation I have personally seen and examined this patient.: Yes I have fully participated in the care of the patient.: Yes I have reviewed all pertinent clinical information: Yes
[2017-11-21] MEDS ORDERED: (Novolin R) Insulin Human Regular 100 units/ml vial SC SCH (06:00)
[2017-11-21 07:54] LABS: FOLATE > 20.0 ng/mL
--- NOTE | 2017-11-21 08:05 | CP.PCM.PN ---
Subjective - Date & Time of Evaluation Date of Evaluation: 11/21/17 Time of Evaluation: 08:05 Objective - Vital Signs/Intake and Output Vital Signs (last 24 hours): Temp Pulse Resp BP Pulse Ox 98.6 F 85 23 93/49 L 96 11/21/17 04:00 11/21/17 07:00 11/21/17 07:00 11/21/17 06:30 11/21/17 07:00 Intake and Output: 11/21/17 11/21/17 06:59 18:59 Intake Total 200 100 Output Total 0 0 Balance 200 100 - Medications Medications: Current Medications Aspirin (Aspirin Supp) 300 mg SC DAILY MARKUS Sodium Chloride (Sodium Chloride 0.9%) 1,000 mls @ 100 mls/hr IV .Q10H MARKUS Last Admin: 11/21/17 03:37 Dose: 100 mls/hr Insulin Human Regular (Novolin R) 0 unit SC Q6 MARKUS PRN Reason: Protocol Last Admin: 11/21/17 05:44 Dose: Not Given Morphine Sulfate (Morphine) 2 mg IVP Q6H PRN PRN Reason: Pain, moderate (4-7) Last Admin: 11/21/17 04:18 Dose: 2 mg Pantoprazole Sodium (Protonix Inj) 40 mg IVP DAILY MARKUS - Labs Labs: 11/21/17 00:36 11/21/17 00:36 PT 11.7 SECONDS (9.7-12.2) 11/21/17 00:36 INR 1.0 11/21/17 00:36 APTT 36 SECONDS (21-34) H 11/21/17 00:36
--- NOTE | 2017-11-21 08:21 | RAD ---
HISTORY: R/O INFILTRATED COMPARISON: 07/09/2017. FINDINGS: LUNGS: Limited portable examination due to patient rotation to the right. Allowing for this, the lungs are clear. PLEURA: There is stable blunting of the right costophrenic angle, no pneumothorax apparent. No left pleural effusion. CARDIOVASCULAR: Normal. OSSEOUS STRUCTURES: No significant abnormalities. VISUALIZED UPPER ABDOMEN: Normal. OTHER FINDINGS: None. IMPRESSION: No active pulmonary disease. Right pleural thickening.
[2017-11-21 08:23] VITALS: BP 118/74; PULSE 90; RESP 17; TEMP 99.2; O2SAT 95
--- NOTE | 2017-11-21 08:24 | CT ---
PROCEDURE: CT HEAD WITHOUT CONTRAST. HISTORY: code stroke COMPARISON: 11/23/2016 TECHNIQUE: Axial computed tomography images were obtained through the head/brain without intravenous contrast. Radiation dose: Total exam DLP = 1015 mGy-cm. This CT exam was performed using one or more of the following dose reduction techniques: Automated exposure control, adjustment of the mA and/or kV according to patient size, and/or use of iterative reconstruction technique. FINDINGS: HEMORRHAGE: No intracranial hemorrhage. Probable streak artifact in the anterior left frontal region on series 2, image 16 BRAIN: No mass effect or edema. Scattered focal lucencies in the subcortical and periventricular white matter suggestive for chronic microvascular ischemic change. VENTRICLES: Unremarkable. No hydrocephalus. CALVARIUM: Unremarkable. PARANASAL SINUSES: Mucosal thickening of the bilateral maxillary sinuses with a suggestion of small mucosal retention cysts and/or polyps at the inferior aspects of the bilateral maxillary sinuses. Hypoplastic frontal sinus. MASTOID AIR CELLS: Unremarkable as visualized. No inflammatory changes. OTHER FINDINGS: Densely calcified atherosclerotic disease. Increased attenuation of the left orbital globe. Clinical correlation. IMPRESSION: No acute intracranial abnormality. Mild chronic microvascular ischemic changes. If symptoms persists, consider further evaluation with MRI. These findings were preliminarily reported at 12:47 a.m. on 11/21/[address] Almaz Adame from [facility].
--- NOTE | 2017-11-21 16:05 | CP.PCM.DIS ---
Provider - Provider Date of Admission: 11/21/17 01:36 Attending physician: Aston Almonte MD Time Spent in preparation of Discharge (in minutes): 35 Hospital Course - Lab Results Lab Results: Most Recent Lab Values WBC 7.9 K/uL (4.8-10.8) 11/21/17 00:36 RBC 4.30 Mil/uL (4.40-5.90) L 11/21/17 00:36 Hgb 13.5 g/dL (12.0-18.0) 11/21/17 00:36 Hct 38.5 % (35.0-51.0) 11/21/17 00:36 MCV 89.6 fL (80.0-94.0) 11/21/17 00:36 MCH 31.4 pg (27.0-31.0) H 11/21/17 00:36 MCHC 35.1 g/dL (33.0-37.0) 11/21/17 00:36 RDW 14.3 % (11.5-14.5) 11/21/17 00:36 Plt Count 254 K/uL (130-400) 11/21/17 00:36 MPV 7.5 fL (7.2-11.7) 11/21/17 00:36 Neut % (Auto) 67.5 % (50.0-75.0) 11/21/17 00:36 Lymph % (Auto) 22.4 % (20.0-40.0) 11/21/17 00:36 [place]land % (Auto) 8.4 % (0.0-10.0) 11/21/17 00:36 Eos % (Auto) 0.3 % (0.0-4.0) 11/21/17 00:36 Baso % (Auto) 1.4 % (0.0-2.0) 11/21/17 00:36 Neut # (Auto) 5.3 K/uL (1.8-7.0) 11/21/17 00:36 Lymph # (Auto) 1.8 K/uL (1.0-4.3) 11/21/17 00:36 Garland # (Auto) 0.7 K/uL (0.0-0.8) 11/21/17 00:36 Eos # (Auto) 0.0 K/uL (0.0-0.7) 11/21/17 00:36 Baso # (Auto) 0.1 K/uL (0.0-0.2) 11/21/17 00:36 PT 11.7 SECONDS (9.7-12.2) 11/21/17 00:36 INR 1.0 11/21/17 00:36 APTT 36 SECONDS (21-34) H 11/21/17 00:36 Sodium 139 mmol/L (132-148) 11/21/17 00:36 Potassium 3.8 mmol/L (3.6-5.2) 11/21/17 00:36 Chloride 103 mmol/L (98-107) 11/21/17 00:36 Carbon Dioxide 24 mmol/L (22-30) 11/21/17 00:36 Anion Gap 17 (10-20) 11/21/17 00:36 BUN 10 mg/dL (9-20) 11/21/17 00:36 Creatinine 0.7 mg/dL (0.8-1.5) L 11/21/17 00:36 Est GFR ( Amer) > 60 11/21/17 00:36 Est GFR (Non-Af Amer) > 60 11/21/17 00:36 POC Glucose (mg/dL) 87 mg/dL (65-110) 11/21/17 07:26 Random Glucose 97 mg/dL (75-110) 11/21/17 00:36 Hemoglobin A1c 5.8 % (4.2-6.5) 11/21/17 00:36 Calcium 9.9 mg/dl (8.6-10.4) 11/21/17 00:36 Total Bilirubin 0.5 mg/dL (0.2-1.3) 11/21/17 00:36 AST 19 U/L (17-59) 11/21/17 00:36 ALT 8 U/L (21-72) L D 11/21/17 00:36 Alkaline Phosphatase 77 U/L (38-126) 11/21/17 00:36 Total Creatine Kinase 50 U/L (55-170) L 11/21/17 00:36 CK-MB (Mass) < 0.22 ng/mL (0.0-3.38) 11/21/17 00:36 Troponin I < 0.0120 ng/mL (0.00-0.120) 11/21/17 00:36 NT-Pro-B Natriuret Pep 22.6 pg/mL (0-900) 11/21/17 00:36 Total Protein 7.9 g/dL (6.3-8.3) 11/21/17 00:36 Albumin 4.3 g/dL (3.5-5.0) 11/21/17 00:36 Globulin 3.6 gm/dL (2.2-3.9) 11/21/17 00:36 Albumin/Globulin Ratio 1.2 (1.0-2.1) 11/21/17 00:36 Triglycerides 239 mg/dL (0-149) H D 11/21/17 00:36 Cholesterol 257 mg/dL (0-199) H 11/21/17 00:36 LDL Cholesterol Direct 188 mg/dL (0-129) H 11/21/17 00:36 HDL Cholesterol 35 mg/dL (30-70) 11/21/17 00:36 Vitamin B12 298 pg/mL (239-931) 11/21/17 06:17 Folate > 20.0 ng/mL 11/21/17 06:17 Blood Type O NEGATIVE 11/21/17 00:38 Antibody Screen Negative 11/21/17 00:38 - Hospital Course Hospital Course: This is a 52 year old male with past medical history of stage III lung cancer ( diagnosed in 2016), COPD, and left eye blindness, presents to the ER for change in mental status. Per patient's daughter in law the patient was unresponsive, his eyes rolled back, lost consciousness and fell but she was able to catch him. She states she then called the ambulance. She also states his speech is slurred and he is not able to walk. The patient states the last thing he remembers was laying in his bed. The patient states he now has weakness in his left arm and legs. He states he is blind in his left eye due to an infection from last year of his yari cath. Patient denies chest pain, palpitations, shortness of breath, nausea or vomiting. Per patient's daughter in law this is the first time the patient has become unresponsive. 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 Symptoms started about two hours ago, but he is not a good candidate for IV tPA due to seizure-like activity and high risk for bleeding due to metastatic cancer. He recommended Telemetry and Q1 hour neuro-checks (may need ICU admission for close observation), MRI brain with and without contrast, MRA head/neck without contrast,. Echocardiogram with bubble study, Load with aspirin 300 mg TN, Lipid panel, HbA1c, B12, folate, hypercoagulable work-up, PT/OT eval and treat, DVT Px with SCD, Fluids with NS at 100 mL/hr,Permissive HTN (only treat BP > 220/ 110 mm Hg for the next 24-36 hours) Patient refused to stay and he refused further study at ICU. He is alert and oriented x3 and understand the consequence of leaving without treatment and evaluation. Risk explained .He refuses to stay,refuses to follow with his oncologist. His daughter in law at bedside couldn't convince him to stay. Patient states that he knows his diagnosis , further test or treatment is not going to help him and he is not ready to spend more money on this tests. - Date & Time of H&P Date of H&P: 11/21/17 Time of H&P: 16:14 Discharge Exam - Head Exam Head Exam: ATRAUMATIC, NORMAL INSPECTION Discharge Plan - Follow Up Plan Condition: SERIOUS Disposition: AGAINST MEDICAL ADVICE
== END 2017-11-21 08:10 | disposition left against medical advice (07) | DRG 948 ==
LOC: C.ER 00:14 → C.9E 01:36 → C.9I 01:43
PROVIDERS: ADMIT Family Medicine; ATTEND Family Medicine
DX: R41.82 Altered mental status, unspecified (principal); C79.31 Secondary malignant neoplasm of brain; G81.94 Hemiplegia, unspecified affecting left nondominant side; C34.90 Malignant neoplasm of unspecified part of unspecified bronchus or lung; G83.84 Todd's paralysis (postepileptic); I10 Essential (primary) hypertension; J44.9 Chronic obstructive pulmonary disease, unspecified; F17.210 Nicotine dependence, cigarettes, uncomplicated; I69.398 Other sequelae of cerebral infarction; H54.40 Blindness, one eye, unspecified eye; R47.81 Slurred speech; R29.810 Facial weakness; E78.5 Hyperlipidemia, unspecified